=== PATIENT | female | born 1940 | race Two or more races ===

== ENCOUNTER 2023-11-09 10:28 | Inpatient (IN) | payer OTHER ==
[~2023-11-09] VITALS: Ht 152.4 cm; Wt 113.4 kg
[~2023-11-09 10:28] MED LIST: ACID REDUCER20 M1; GRALISE600 MG; SYNTHROID137 MCG
[2023-11-09 11:12] LABS: URINE APPEARANCE Turbid; URINE BILIRRUBIN Small (NEGATIVE); URINE BLOOD Trace; URINE COLOR Dark Yellow; URINE GLUCOSE Negative (NEGATIVE); URINE LEUKOCYTE Large; URINE NITRATE Negative; URINE PROTEIN 30 (NEGATIVE)
[2023-11-09 11:14] LABS: HEMATOCRIT 43.9 % (36.0-45.00); HEMOGLOBIN 14.6 g/dL (12.0-15.00); MEAN CORPUSCULAR HGB CONC 33.3 g/dl (32.0-36.0); PLATELET COUNT 256 K/uL (150-450); RED BLOOD COUNT 5.22 M/uL (4.00-6.00); RED CELL DISTRIBUTION WIDTH 14.9 % (11.5-14.5)
[2023-11-09 11:15] LABS: URINE BACTERIA 506.4 uL (0.0-1933); URINE EPITHELIAL CELLS 71.4 uL (0.0-38.8); URINE RBC 165.9 uL (0.0-20.8); URINE WBC 2974.4 uL (0.0-23.2)
[2023-11-09 11:38] LABS: INR 1.09; PARTIAL THROMBOPLASTIN TIME 27.6 SECONDS (22.0-34.0); PROTHROMBIN TIME 11.4 SECONDS (9.0-11.5)
[2023-11-09 12:08] LABS: CALCIUM 9.4 mg/dL (8.5-10.1); CREATININE SERUM 1.09 mg/dL (0.55-1.02); GFR 47.71; POTASSIUM 3.92 mEq/L (3.5-5.1)
[2023-11-09 13:54] LABS: ABG PH 7.443 (7.35-7.45); ABG PO2 94.5 mmHg (80-100); ABG pCO2 37.4 mmHg (35-45); BASE EXCESS 1.2 mmol/l; SaO2 97.7 %
[2023-11-09 13:55] LABS: Tco2 26.2 mmol/l; allen test SATISFACTORY; o2 32 %; puncture site RADIAL RIGHT
[2023-11-12 02:25] LABS: CHOL HDL RATIO 3.6 (0-5.0)
[2023-11-12 02:26] LABS: TSH 4.3 uIU/mL (0.358-3.74)
[2023-11-12 06:44] LABS: HEMOGLOBIN 14.9 g/dL (12.0-15.00); MEAN CELL VOLUME 83.4 fL (80.00-100.00); MEAN CORPUSCULAR HEMOGLOBIN 27.6 pg (27.00-32.0); MEAN CORPUSCULAR HGB CONC 33.1 g/dl (32.0-36.0); PLATELET COUNT 272 K/uL (150-450); RED CELL DISTRIBUTION WIDTH 14.3 % (11.5-14.5)
[2023-11-12 07:04] LABS: ALBUMIN 2.9 gm/dL (3.4-5.0); BILIRUBIN TOTAL 1.34 mg/dL (0.3-1.2); CALCIUM 9.1 mg/dL (8.5-10.1); CREATININE SERUM 0.84 mg/dL (0.55-1.02); GFR 64.44; GLOBULINA 4.6 G/DL (2.4-3.5); POTASSIUM 3.55 mEq/L (3.5-5.1); TOTAL PROTEIN 7.5 gm/dL (6.4-8.2)
[2023-11-13 06:57] LABS: ALBUMIN 2.7 gm/dL (3.4-5.0); BILIRUBIN TOTAL 1.03 mg/dL (0.3-1.2); CREATININE SERUM 0.86 mg/dL (0.55-1.02); GFR 62.71; GLOBULINA 4.5 G/DL (2.4-3.5); POTASSIUM 3.47 mEq/L (3.5-5.1); TOTAL PROTEIN 7.2 gm/dL (6.4-8.2)
[2023-11-13 07:04] LABS: HEMATOCRIT 44.6 % (36.0-45.00); HEMOGLOBIN 14.5 g/dL (12.0-15.00); MEAN CELL VOLUME 82.7 fL (80.00-100.00); MEAN CORPUSCULAR HGB CONC 32.6 g/dl (32.0-36.0); PLATELET COUNT 296 K/uL (150-450); RED BLOOD COUNT 5.39 M/uL (4.00-6.00); RED CELL DISTRIBUTION WIDTH 14.6 % (11.5-14.5)
[2023-11-14 08:09] LABS: HEMATOCRIT 46.5 % (36.0-45.00); HEMOGLOBIN 15.3 g/dL (12.0-15.00); MEAN CELL VOLUME 84.5 fL (80.00-100.00); MEAN CORPUSCULAR HEMOGLOBIN 27.8 pg (27.00-32.0); MEAN CORPUSCULAR HGB CONC 32.9 g/dl (32.0-36.0); PLATELET COUNT 316 K/uL (150-450); RED CELL DISTRIBUTION WIDTH 14.5 % (11.5-14.5)
[2023-11-14 08:38] LABS: BILIRUBIN TOTAL 0.96 mg/dL (0.3-1.2); CREATININE SERUM 0.83 mg/dL (0.55-1.02); GFR 65.34; GLOBULINA 4.1 G/DL (2.4-3.5); POTASSIUM 3.69 mEq/L (3.5-5.1); TOTAL PROTEIN 7.1 gm/dL (6.4-8.2)
[2023-11-20 06:48] LABS: HEMATOCRIT 42.6 % (36.0-45.00); MEAN CELL VOLUME 83.5 fL (80.00-100.00); MEAN CORPUSCULAR HEMOGLOBIN 27.5 pg (27.00-32.0); PLATELET COUNT 288 K/uL (150-450); RED CELL DISTRIBUTION WIDTH 14.2 % (11.5-14.5)
[2023-11-20 07:20] LABS: ALBUMIN 2.3 gm/dL (3.4-5.0); BILIRUBIN TOTAL 0.74 mg/dL (0.3-1.2); CALCIUM 8.8 mg/dL (8.5-10.1); CREATININE SERUM 0.72 mg/dL (0.55-1.02); GFR 76.98; GLOBULINA 3.6 G/DL (2.4-3.5); POTASSIUM 3.96 mEq/L (3.5-5.1); TOTAL PROTEIN 5.9 gm/dL (6.4-8.2)
[2023-11-22 09:10] LABS: INR 1.09; PARTIAL THROMBOPLASTIN TIME 26.5 SECONDS (22.0-34.0); PROTHROMBIN TIME 11.4 SECONDS (9.0-11.5)
[2023-11-24 08:12] LABS: CALCIUM 8.7 mg/dL (8.5-10.1); CREATININE SERUM 0.74 mg/dL (0.55-1.02); GFR 74.59; POTASSIUM 3.8 mEq/L (3.5-5.1)
[2023-11-24 08:22] LABS: HEMATOCRIT 40.3 % (36.0-45.00); HEMOGLOBIN 13.5 g/dL (12.0-15.00); MEAN CELL VOLUME 83.5 fL (80.00-100.00); MEAN CORPUSCULAR HEMOGLOBIN 27.9 pg (27.00-32.0); MEAN CORPUSCULAR HGB CONC 33.4 g/dl (32.0-36.0); PLATELET COUNT 253 K/uL (150-450); RED BLOOD COUNT 4.83 M/uL (4.00-6.00); RED CELL DISTRIBUTION WIDTH 14.2 % (11.5-14.5)
[2023-11-27 06:52] LABS: HEMATOCRIT 39.3 % (36.0-45.00); HEMOGLOBIN 13.1 g/dL (12.0-15.00); MEAN CELL VOLUME 83.2 fL (80.00-100.00); MEAN CORPUSCULAR HEMOGLOBIN 27.6 pg (27.00-32.0); MEAN CORPUSCULAR HGB CONC 33.2 g/dl (32.0-36.0); PLATELET COUNT 253 K/uL (150-450); RED BLOOD COUNT 4.72 M/uL (4.00-6.00); RED CELL DISTRIBUTION WIDTH 14.3 % (11.5-14.5)
[2023-11-27 12:08] LABS: ALBUMIN 2.3 gm/dL (3.4-5.0); BILIRUBIN TOTAL 1.05 mg/dL (0.3-1.2); CALCIUM 8.8 mg/dL (8.5-10.1); CREATININE SERUM 0.68 mg/dL (0.55-1.02); GFR 82.23; GLOBULINA 3.8 G/DL (2.4-3.5); PHOSPHOROUS 4.2 mg/dL (2.5-4.9); POTASSIUM 4.24 mEq/L (3.5-5.1); TOTAL PROTEIN 6.1 gm/dL (6.4-8.2)
[2023-11-27 12:15] LABS: MAGNESIUM 1.4 mg/dL (1.8-2.4)
[2023-11-28 22:33] LABS: PH,URINE 7.5 (5.0-8.0); URINE APPEARANCE Cloudy; URINE BILIRRUBIN Negative (NEGATIVE); URINE BLOOD Large; URINE COLOR Yellow; URINE GLUCOSE Negative (NEGATIVE); URINE LEUKOCYTE Large; URINE NITRATE Negative; URINE PROTEIN 30 (NEGATIVE)
[2023-11-28 22:37] LABS: URINE BACTERIA 2964.6 uL (0.0-1933); URINE EPITHELIAL CELLS 17.7 uL (0.0-38.8); URINE RBC 357.8 uL (0.0-20.8); URINE WBC 317.5 uL (0.0-23.2)
[2023-11-28 22:49] LABS: URINE MUCUS SCANT
[2023-11-28 22:50] LABS: URINE CRYSTALS FEW /HPF; URINE YEAST FEW /hpf
[2023-11-29 15:10] LABS: HEMOGLOBIN 13.1 g/dL (12.0-15.00); MEAN CORPUSCULAR HEMOGLOBIN 27.2 pg (27.00-32.0); MEAN CORPUSCULAR HGB CONC 32.8 g/dl (32.0-36.0); PLATELET COUNT 255 K/uL (150-450); RED BLOOD COUNT 4.82 M/uL (4.00-6.00); RED CELL DISTRIBUTION WIDTH 14.4 % (11.5-14.5)
[2023-11-29 15:11] LABS: PH,URINE 7.5 (5.0-8.0); URINE APPEARANCE Clear; URINE BILIRRUBIN Negative (NEGATIVE); URINE BLOOD Moderate; URINE COLOR Yellow; URINE GLUCOSE Negative (NEGATIVE); URINE LEUKOCYTE Large; URINE NITRATE Positive; URINE PROTEIN Negative (NEGATIVE)
[2023-11-29 15:12] LABS: URINE BACTERIA 4968.7 uL (0.0-1933); URINE EPITHELIAL CELLS 13.4 uL (0.0-38.8); URINE RBC 39.5 uL (0.0-20.8); URINE WBC 157.4 uL (0.0-23.2)
[2023-11-29 15:28] LABS: ALBUMIN 2.3 gm/dL (3.4-5.0); BILIRUBIN TOTAL 0.88 mg/dL (0.3-1.2); CALCIUM 8.9 mg/dL (8.5-10.1); CREATININE SERUM 0.77 mg/dL (0.55-1.02); GFR 71.24; GLOBULINA 3.6 G/DL (2.4-3.5); POTASSIUM 4.18 mEq/L (3.5-5.1); TOTAL PROTEIN 5.9 gm/dL (6.4-8.2)
[2023-12-02 06:17] LABS: ALBUMIN 2.2 gm/dL (3.4-5.0); BILIRUBIN TOTAL 0.85 mg/dL (0.3-1.2); CALCIUM 8.6 mg/dL (8.5-10.1); CREATININE SERUM 0.6 mg/dL (0.55-1.02); GFR 95.01; GLOBULINA 3.8 G/DL (2.4-3.5); POTASSIUM 4.02 mEq/L (3.5-5.1)
[2023-12-02 06:24] LABS: HEMATOCRIT 37.8 % (36.0-45.00); HEMOGLOBIN 12.6 g/dL (12.0-15.00); MEAN CELL VOLUME 82.1 fL (80.00-100.00); MEAN CORPUSCULAR HEMOGLOBIN 27.4 pg (27.00-32.0); MEAN CORPUSCULAR HGB CONC 33.4 g/dl (32.0-36.0); PLATELET COUNT 256 K/uL (150-450)
[2023-12-06 06:15] LABS: HEMATOCRIT 38.1 % (36.0-45.00); HEMOGLOBIN 12.6 g/dL (12.0-15.00); MEAN CELL VOLUME 84.2 fL (80.00-100.00); MEAN CORPUSCULAR HEMOGLOBIN 27.9 pg (27.00-32.0); MEAN CORPUSCULAR HGB CONC 33.1 g/dl (32.0-36.0); PLATELET COUNT 265 K/uL (150-450); RED BLOOD COUNT 4.52 M/uL (4.00-6.00); RED CELL DISTRIBUTION WIDTH 14.9 % (11.5-14.5)
[2023-12-06 07:02] LABS: ALBUMIN 2.4 gm/dL (3.4-5.0); BILIRUBIN TOTAL 0.77 mg/dL (0.3-1.2); CALCIUM 9.1 mg/dL (8.5-10.1); CREATININE SERUM 0.85 mg/dL (0.55-1.02); GFR 63.56; GLOBULINA 3.8 G/DL (2.4-3.5); POTASSIUM 4.17 mEq/L (3.5-5.1); TOTAL PROTEIN 6.2 gm/dL (6.4-8.2)
[2023-12-06] MEDS ORDERED: LIPITOR40 M1 PO ×2 (10:48)
[2023-12-06] MEDS ORDERED: CLOPIDOGREL BIS75 MG PO ×2 (10:48)
[2023-12-06] MEDS ORDERED: XARELTO20 MG PO ×2 (10:48)
[2023-12-06] MEDS ORDERED: AMLODIPINE BESYL5 MG PO ×2 (10:48)
[2023-12-06] MEDS ORDERED: COZAAR50 MG PO ×2 (10:49)
[2023-12-06] MEDS ORDERED: METOPROLOL TART50 MG PO ×2 (10:49)
[2023-12-06] MEDS ORDERED: SPIRONOLACTONE25 MG PO ×2 (10:49)
[2023-12-06] MEDS ORDERED: ACID REDUCER20 M1 PO ×2 (10:50)
[2023-12-06] MEDS ORDERED: GRALISE600 MG PO ×2 (10:50)
[2023-12-06] MEDS ORDERED: LEVO-T137 MCG PO ×2 (10:51)
== END 2023-12-06 15:07 | DRG 64 ==
LOC: ER 10:28 → ICU-2 19:28 → ICU 11-13 18:50 → MEDI 11-16 12:11
PROVIDERS: General Practice; Internal Medicine; Internal Medicine Infectious Disease; ADMIT Internal Medicine; ATTEND Internal Medicine
PROC: B020ZZZ Computerized Tomography (CT Scan) of Brain (ICD-10-PCS; 2023-11-09)
PROC: B345ZZZ Ultrasonography of Bilateral Common Carotid Arteries (ICD-10-PCS; 2023-11-09)
PROC: B030ZZZ Magnetic Resonance Imaging (MRI) of Brain (ICD-10-PCS; 2023-11-09)
PROC: B24BYZZ Ultrasonography of Heart with Aorta using Other Contrast (ICD-10-PCS; 2023-11-10)
PROC: B020ZZZ Computerized Tomography (CT Scan) of Brain (ICD-10-PCS; 2023-11-13)
PROC: 4A12X4Z Monitoring of Cardiac Electrical Activity, External Approach (ICD-10-PCS; 2023-11-16)
PROC: 0D9670Z Drainage of Stomach with Drainage Device, Via Natural or Artificial Opening (ICD-10-PCS; principal; 2023-11-21)
PROC: 3E0G76Z Introduction of Nutritional Substance into Upper GI, Via Natural or Artificial Opening (ICD-10-PCS; 2023-11-21)
DX: I63.9 Cerebral infarction, unspecified (principal); I21.4 Non-ST elevation (NSTEMI) myocardial infarction; I48.20 Chronic atrial fibrillation, unspecified; I50.20 Unspecified systolic (congestive) heart failure; N39.0 Urinary tract infection, site not specified; G81.91 Hemiplegia, unspecified affecting right dominant side; N17.9 Acute kidney failure, unspecified; I11.0 Hypertensive heart disease with heart failure; R13.0 Aphagia; E11.9 Type 2 diabetes mellitus without complications; Z79.4 Long term (current) use of insulin; I63.522 Cerebral infarction due to unspecified occlusion or stenosis of left anterior cerebral artery; I69.320 Aphasia following cerebral infarction; I34.0 Nonrheumatic mitral (valve) insufficiency; E66.01 Morbid (severe) obesity due to excess calories
CPT/HCPCS: 70544

== ENCOUNTER 2023-12-08 20:08 | Emergency (ER) | payer OTHER ==
[~2023-12-08] VITALS: Ht 170.2 cm; Wt 88.5 kg
[~2023-12-08 20:08] MED LIST changes: +ACID REDUCER20 M1 PO; +AMLODIPINE BESYL5 MG PO; +CLOPIDOGREL BIS75 MG PO; +COZAAR50 MG PO; +GRALISE600 MG PO; +LEVO-T137 MCG PO; +LIPITOR40 M1 PO; +METOPROLOL TART50 MG PO; +SPIRONOLACTONE25 MG PO; +XARELTO20 MG PO
[2023-12-08 21:45] LABS: HEMATOCRIT 37.6 % (36.0-45.00); HEMOGLOBIN 12.4 g/dL (12.0-15.00); MEAN CELL VOLUME 82.9 fL (80.00-100.00); MEAN CORPUSCULAR HEMOGLOBIN 27.2 pg (27.00-32.0); MEAN CORPUSCULAR HGB CONC 32.8 g/dl (32.0-36.0); PLATELET COUNT 365 K/uL (150-450); RED BLOOD COUNT 4.53 M/uL (4.00-6.00); RED CELL DISTRIBUTION WIDTH 15.8 % (11.5-14.5)
[2023-12-08 22:08] LABS: INR 1.09; PARTIAL THROMBOPLASTIN TIME 27.9 SECONDS (22.0-34.0); PROTHROMBIN TIME 11.4 SECONDS (9.0-11.5)
[2023-12-08 22:13] LABS: ALBUMIN 2.4 gm/dL (3.4-5.0); BILIRUBIN TOTAL 0.65 mg/dL (0.3-1.2); CALCIUM 8.9 mg/dL (8.5-10.1); CREATININE SERUM 0.75 mg/dL (0.55-1.02); GFR 73.44; GLOBULINA 3.6 G/DL (2.4-3.5); POTASSIUM 4.18 mEq/L (3.5-5.1)
== END 2023-12-09 11:12 | disposition home or self-care (01) ==
LOC: ER 20:08
PROVIDERS: Emergency Medicine
DX: R07.9 Chest pain, unspecified (principal); I48.91 Unspecified atrial fibrillation; Z91.013 Allergy to seafood; Z88.8 Allergy status to other drugs, medicaments and biological substances; Z86.73 Personal history of transient ischemic attack (TIA), and cerebral infarction without residual deficits; I25.2 Old myocardial infarction; E03.9 Hypothyroidism, unspecified; I10 Essential (primary) hypertension; Z91.041 Radiographic dye allergy status
CPT/HCPCS: 71045; 93005; 96365; 99284; J1940

== ENCOUNTER 2024-07-18 11:10 | Inpatient (IN) | payer OTHER ==
[~2024-07-18] VITALS: Ht 152.4 cm; Wt 136.1 kg
[2024-07-18 12:02] LABS: ABG PH 7.434 (7.35-7.45); ABG PO2 72.4 mmHg (80-100); ABG pCO2 27.6 mmHg (35-45); BASE EXCESS -4.6 mmol/l; BICARBONATE 18.1 mmol/l (23-25); SaO2 94.7 %; Tco2 18.9 mmol/l
[2024-07-18] MEDS ORDERED: ALBUTEROL SULFATE 3 ML/2.5 MG AMPUL.NEB IH ONE ×2 (12:09→12:15)
[2024-07-18 12:45] LABS: allen test SATISFACTORY; o2 28 %; puncture site RADIAL RIGHT
[2024-07-18 12:53] LABS: HEMATOCRIT 38.3 % (36.0-45.00); HEMOGLOBIN 12.7 g/dL (12.0-15.00); MEAN CELL VOLUME 84.9 fL (80.00-100.00); MEAN CORPUSCULAR HEMOGLOBIN 28.2 pg (27.00-32.0); MEAN CORPUSCULAR HGB CONC 33.2 g/dl (32.0-36.0); PLATELET COUNT 435 K/uL (150-450); RED BLOOD COUNT 4.51 M/uL (4.00-6.00); RED CELL DISTRIBUTION WIDTH 15.1 % (11.5-14.5)
[2024-07-18 13:09] LABS: URINE APPEARANCE Turbid; URINE BILIRRUBIN Moderate (NEGATIVE); URINE BLOOD Negative; URINE COLOR Orange; URINE GLUCOSE Negative (NEGATIVE); URINE KETONE Trace (NEGATIVE); URINE LEUKOCYTE Small; URINE NITRATE Positive
[2024-07-18 13:13] LABS: URINE BACTERIA 3156.2 uL (0.0-1933); URINE RBC 181.5 uL (0.0-20.8); URINE WBC 47.9 uL (0.0-23.2)
[2024-07-18 13:23] LABS: URINE CAST > 21.83 uL (0.0-1.40); URINE EPITHELIAL CELLS > 201.7 uL (0.0-38.8); URINE PROTEIN 100 (NEGATIVE)
[2024-07-18 13:27] LABS: URINE CRYSTALS MANY /HPF
[2024-07-18 13:27] LABS: ALBUMIN 3.1 gm/dL (3.4-5.0); BILIRUBIN TOTAL 1.42 mg/dL (0.3-1.2); CREATININE SERUM 1.42 mg/dL (0.55-1.02); GFR 35.16; GLOBULINA 4.3 G/DL (2.4-3.5); POTASSIUM 5.09 mEq/L (3.5-5.1); TOTAL PROTEIN 7.4 gm/dL (6.4-8.2)
[2024-07-18 13:34] LABS: INR 1.04; PROTHROMBIN TIME 11.3 SECONDS (9.0-11.5)
[2024-07-18] MEDS ORDERED: NITROGLYCERIN IN 5 % DEXTROSE 50 MG/250 ML BOTTLE IV ONE (14:14)
[2024-07-18] MEDS ORDERED: NITROGLYCERIN IN 5 % DEXTROSE 250 ML IV SCH (14:30)
[2024-07-18 19:50] VITALS: BP 98/60
[2024-07-18] MEDS ORDERED: CEFTRIAXONE SODIUM 2,000 MG in 0.9 % SODIUM CHLORIDE 100 ML IV SCH (20:18)
[2024-07-18] MEDS ORDERED: ONDANSETRON HCL 4 MG in 0.9 % SODIUM CHLORIDE 50 ML IV PRN (20:30)
[2024-07-18] MEDS ORDERED: ACETAMINOPHEN 500 MG GEL..CAP PO PRN (20:30)
[2024-07-18] MEDS ORDERED: CEFTRIAXONE SODIUM 2,000 MG VIAL ONE (20:41)
[2024-07-18 21:14] VITALS: BP 99/61; O2SAT 95
[2024-07-18] MEDS ORDERED: KETOROLAC TROMETHAMINE 30 MG VIAL ONE (21:27)
[2024-07-18 22:07] VITALS: BP 100/64; O2SAT 95
[2024-07-18 23:05] VITALS: BP 96/72; O2SAT 96
[2024-07-18] MEDS ORDERED: IPRATROPIUM BROMIDE 0.5 MG/2.5 ML AMPUL.NEB IH ONE (23:55)
[2024-07-19] VITALS (18 sets, daily range): BP systolic 82–136; BP diastolic 62–107; O2SAT 94–100
[2024-07-19] MEDS ORDERED: FUROsemide 40 MG/4 ML VIAL ONE (00:54)
[2024-07-19] MEDS ORDERED: FUROsemide 40 MG/4 ML VIAL IV SCH ×2 (01:00→21:00)
[2024-07-19] MEDS ORDERED: IPRATROPIUM BROMIDE 0.5 MG/2.5 ML AMPUL.NEB IH SCH (01:00)
[2024-07-19] MEDS ORDERED: METOPROLOL SUCCINATE 25 MG TAB.SR.24H PO ONE (05:45)
[2024-07-19] MEDS ORDERED: LEVOTHYROXINE SODIUM 137 MCG TABLET PO SCH (06:00)
[2024-07-19] MEDS ORDERED: METOPROLOL TARTRATE 25 MG TABLET PO SCH (06:44)
[2024-07-19 07:42] LABS: HEMATOCRIT 37.6 % (36.0-45.00); HEMOGLOBIN 12.3 g/dL (12.0-15.00); MEAN CELL VOLUME 86.8 fL (80.00-100.00); MEAN CORPUSCULAR HEMOGLOBIN 28.4 pg (27.00-32.0); MEAN CORPUSCULAR HGB CONC 32.8 g/dl (32.0-36.0); PLATELET COUNT 424 K/uL (150-450); RED BLOOD COUNT 4.33 M/uL (4.00-6.00); RED CELL DISTRIBUTION WIDTH 15.1 % (11.5-14.5)
[2024-07-19 08:40] LABS: ALBUMIN 2.8 gm/dL (3.4-5.0); BILIRUBIN TOTAL 1.24 mg/dL (0.3-1.2); CALCIUM 9.1 mg/dL (8.5-10.1); CREATININE SERUM 1.42 mg/dL (0.55-1.02); GFR 35.16; GLOBULINA 3.9 G/DL (2.4-3.5); MAGNESIUM 1.9 mg/dL (1.8-2.4); PHOSPHOROUS 4.4 mg/dL (2.5-4.9); POTASSIUM 5.09 mEq/L (3.5-5.1); TOTAL PROTEIN 6.7 gm/dL (6.4-8.2)
[2024-07-19] MEDS ORDERED: RIVAROXABAN 20 MG TABLET PO SCH (09:00)
[2024-07-19] MEDS ORDERED: ATORVASTATIN CALCIUM 40 MG TABLET PO SCH (09:00)
[2024-07-19] MEDS ORDERED: FAMOTIDINE/PF 20 MG in 0.9 % SODIUM CHLORIDE 8 ML IV PUSH SCH (09:00)
[2024-07-19] MEDS ORDERED: NITROGLYCERIN IN 5 % DEXTROSE 250 ML IV SCH (10:45)
[2024-07-19 14:15] LABS: TSH 44.6 uIU/mL (0.358-3.74)
[2024-07-19] MEDS ORDERED: LEVOTHYROXINE SODIUM 137 MCG TABLET PO STA (15:56)
[2024-07-19] MEDS ORDERED: TICAGRELOR 90 MG TABLET PO SCH (17:00)
[2024-07-20 04:06] VITALS: BP 130/98; O2SAT 98
[2024-07-20] MEDS ORDERED: LEVOTHYROXINE SODIUM 137 MCG TABLET PO SCH (06:00)
[2024-07-20 06:20] LABS: ABG PO2 77.7 mmHg (80-100); ABG pCO2 33.8 mmHg (35-45); BASE EXCESS -2.8 mmol/l; BICARBONATE 20.9 mmol/l (23-25); SaO2 95.4 %; allen test SATISFACTORY; o2 32 %; puncture site RADIAL LEFT
[2024-07-20 06:32] LABS: HEMATOCRIT 34.2 % (36.0-45.00); HEMOGLOBIN 11.5 g/dL (12.0-15.00); MEAN CELL VOLUME 84.5 fL (80.00-100.00); MEAN CORPUSCULAR HEMOGLOBIN 28.4 pg (27.00-32.0); MEAN CORPUSCULAR HGB CONC 33.7 g/dl (32.0-36.0); PLATELET COUNT 430 K/uL (150-450); RED BLOOD COUNT 4.04 M/uL (4.00-6.00); RED CELL DISTRIBUTION WIDTH 15.4 % (11.5-14.5)
[2024-07-20 07:00] VITALS: BP 127/77; O2SAT 96
[2024-07-20 07:26] LABS: ALBUMIN 2.5 gm/dL (3.4-5.0); BILIRUBIN TOTAL 0.97 mg/dL (0.3-1.2); CALCIUM 8.5 mg/dL (8.5-10.1); CREATININE SERUM 1.41 mg/dL (0.55-1.02); GFR 35.45; GLOBULINA 3.9 G/DL (2.4-3.5); MAGNESIUM 1.8 mg/dL (1.8-2.4); PHOSPHOROUS 4.2 mg/dL (2.5-4.9); POTASSIUM 4.76 mEq/L (3.5-5.1); TOTAL PROTEIN 6.4 gm/dL (6.4-8.2)
[2024-07-20 07:29] LABS: C-REACTIVE PROTEIN 26.2 MG/DL (0.00-0.29)
[2024-07-20] MEDS ORDERED: PANTOPRAZOLE SODIUM 40 MG/VIAL VIAL IV SCH (09:00)
[2024-07-20] MEDS ORDERED: SPIRONOLACTONE 25 MG TABLET PO SCH (09:00)
[2024-07-20] MEDS ORDERED: METOPROLOL TARTRATE 25 MG TABLET PO STA (09:09)
[2024-07-20 12:00] VITALS: BP 113/72; O2SAT 95
[2024-07-20 15:37] VITALS: BP 104/83; O2SAT 93
[2024-07-20] MEDS ORDERED: ATORVASTATIN CALCIUM 40 MG TABLET PO SCH (17:00)
[2024-07-20] MEDS ORDERED: METOPROLOL TARTRATE 50 MG TABLET PO SCH (17:00)
[2024-07-20 20:00] VITALS: BP 110/63; O2SAT 95
[2024-07-20] MEDS ORDERED: FUROsemide 20 MG/2 ML VIAL IV SCH (21:00)
[2024-07-20 23:31] VITALS: BP 122/82; O2SAT 94
[2024-07-21 04:00] VITALS: BP 113/72; O2SAT 95
[2024-07-21 06:45] LABS: HEMATOCRIT 36.3 % (36.0-45.00); HEMOGLOBIN 12.1 g/dL (12.0-15.00); MEAN CELL VOLUME 86.3 fL (80.00-100.00); MEAN CORPUSCULAR HEMOGLOBIN 28.8 pg (27.00-32.0); MEAN CORPUSCULAR HGB CONC 33.3 g/dl (32.0-36.0); PLATELET COUNT 466 K/uL (150-450)
[2024-07-21 07:16] VITALS: BP 123/70; O2SAT 97
[2024-07-21 07:17] LABS: ALBUMIN 2.6 gm/dL (3.4-5.0); BILIRUBIN TOTAL 1.04 mg/dL (0.3-1.2); CALCIUM 8.6 mg/dL (8.5-10.1); CREATININE SERUM 1.58 mg/dL (0.55-1.02); GFR 31.08; MAGNESIUM 1.7 mg/dL (1.8-2.4); PHOSPHOROUS 4.1 mg/dL (2.5-4.9); POTASSIUM 4.39 mEq/L (3.5-5.1); TOTAL PROTEIN 6.6 gm/dL (6.4-8.2)
[2024-07-21] MEDS ORDERED: RIVAROXABAN 15 MG TABLET PO SCH (09:00)
[2024-07-21] MEDS ORDERED: CLOPIDOGREL BISULFATE 75 MG TABLET PO SCH (09:00)
[2024-07-21] MEDS ORDERED: MAGNESIUM SULFATE IN WATER 50 ML IV NR (10:30)
[2024-07-21 11:59] VITALS: BP 87/61; O2SAT 96
[2024-07-21 14:24] LABS: PH,URINE 5.5 (5.0-8.0); URINE APPEARANCE Cloudy; URINE BILIRRUBIN Negative (NEGATIVE); URINE BLOOD Small; URINE COLOR Yellow; URINE GLUCOSE Negative (NEGATIVE); URINE KETONE Negative (NEGATIVE); URINE LEUKOCYTE Small; URINE NITRATE Negative; URINE PROTEIN Negative (NEGATIVE)
[2024-07-21 14:28] LABS: URINE BACTERIA 90.7 uL (0.0-1933); URINE CAST 13.89 uL (0.0-1.40); URINE EPITHELIAL CELLS 27.5 uL (0.0-38.8); URINE RBC 44.4 uL (0.0-20.8); URINE WBC 48.2 uL (0.0-23.2)
[2024-07-21 14:44] LABS: URINE CRYSTALS FEW /HPF
[2024-07-21 14:45] LABS: URINE MUCUS SCANT
[2024-07-21 16:29] VITALS: BP 97/72; O2SAT 100
[2024-07-21 19:07] LABS: PLEURAL FLUID COLOR YELLOW
[2024-07-21 19:08] LABS: PLEURAL FLUID APPEARANCE CLOUDY
[2024-07-21 19:23] LABS: TP PLEURAL FLUID 4.1 g/dl
[2024-07-21 20:00] VITALS: BP 114/67; O2SAT 96
[2024-07-21 20:11] LABS: MONONUCLEAR 57 %; POLYMORPHONUCLEAR 43 %
[2024-07-21 23:42] VITALS: BP 104/84; O2SAT 93
[2024-07-22] VITALS (8 sets, daily range): BP systolic 81–150; BP diastolic 59–86; O2SAT 93–99
[2024-07-22 07:01] LABS: HEMATOCRIT 35.8 % (36.0-45.00); HEMOGLOBIN 11.9 g/dL (12.0-15.00); MEAN CELL VOLUME 85.1 fL (80.00-100.00); MEAN CORPUSCULAR HEMOGLOBIN 28.2 pg (27.00-32.0); MEAN CORPUSCULAR HGB CONC 33.2 g/dl (32.0-36.0); PLATELET COUNT 470 K/uL (150-450); RED CELL DISTRIBUTION WIDTH 15.4 % (11.5-14.5)
[2024-07-22 07:07] LABS: ALBUMIN 2.5 gm/dL (3.4-5.0); CALCIUM 8.8 mg/dL (8.5-10.1); CREATININE SERUM 1.39 mg/dL (0.55-1.02); GFR 36.03; POTASSIUM 4.79 mEq/L (3.5-5.1); TOTAL PROTEIN 6.5 gm/dL (6.4-8.2)
[2024-07-22] MEDS ORDERED: FUROsemide 20 MG/2 ML VIAL IV SCH (09:00)
[2024-07-22] MEDS ORDERED: LEVOTHYROXINE SODIUM 100 MCG/VIAL VIAL IV SCH (09:00)
[2024-07-22] MEDS ORDERED: 0.9 % SODIUM CHLORIDE 1,000 ML IV STA (09:36)
[2024-07-22] MEDS ORDERED: METRONIDAZOLE/SODIUM CHLORIDE 100 ML IV SCH (17:00)
[2024-07-22] MEDS ORDERED: METOPROLOL TARTRATE 25 MG TABLET PO SCH (17:00)
[2024-07-22] MEDS ORDERED: METOPROLOL SUCCINATE 50 MG TAB.SR.24H PO SCH (21:00)
[2024-07-23] VITALS (9 sets, daily range): BP systolic 112–128; BP diastolic 71–75; O2SAT 91–98
[2024-07-23 06:06] LABS: ABG PH 7.432 (7.35-7.45); ABG PO2 65.9 mmHg (80-100); ABG pCO2 31.9 mmHg (35-45); BASE EXCESS -2.4 mmol/l; BICARBONATE 20.8 mmol/l (23-25); SaO2 93.2 %; Tco2 21.8 mmol/l
[2024-07-23 06:22] LABS: allen test SATISFACTORY; o2 32 %; puncture site RADIAL RIGHT
[2024-07-23 06:47] LABS: HEMATOCRIT 34.4 % (36.0-45.00); HEMOGLOBIN 11.6 g/dL (12.0-15.00); MEAN CELL VOLUME 84.4 fL (80.00-100.00); MEAN CORPUSCULAR HEMOGLOBIN 28.6 pg (27.00-32.0); MEAN CORPUSCULAR HGB CONC 33.9 g/dl (32.0-36.0); PLATELET COUNT 443 K/uL (150-450); RED BLOOD COUNT 4.07 M/uL (4.00-6.00); RED CELL DISTRIBUTION WIDTH 14.9 % (11.5-14.5)
[2024-07-23 06:48] LABS: ALBUMIN 2.4 gm/dL (3.4-5.0); BILIRUBIN TOTAL 0.9 mg/dL (0.3-1.2); CALCIUM 8.5 mg/dL (8.5-10.1); CREATININE SERUM 1.2 mg/dL (0.55-1.02); GFR 42.7; MAGNESIUM 2.1 mg/dL (1.8-2.4); PHOSPHOROUS 2.9 mg/dL (2.5-4.9); POTASSIUM 4.84 mEq/L (3.5-5.1); TOTAL PROTEIN 6.4 gm/dL (6.4-8.2)
[2024-07-23] MEDS ORDERED: PANTOPRAZOLE SODIUM 40 MG TABLET.DR PO SCH (09:00)
[2024-07-23] MEDS ORDERED: FUROsemide 20 MG TABLET PO SCH (09:00)
[2024-07-23] MEDS ORDERED: IRON/V.C/V.B12/FOLIC A/VIT. E 1 CAPL CAPLET PO SCH (17:00)
[2024-07-23] MEDS ORDERED: AMINO ACIDS/PROTEIN HYDROLYS 30 ML BLIST.PACK PO SCH (17:00)
[2024-07-24 02:25] VITALS: BP 129/79
[2024-07-24 05:25] VITALS: O2SAT 93
[2024-07-24 09:29] VITALS: O2SAT 95
[2024-07-24 09:42] VITALS: BP 112/72; O2SAT 96
[2024-07-24 12:56] VITALS: O2SAT 95
[2024-07-24 21:35] VITALS: O2SAT 94
[2024-07-25] VITALS (10 sets, daily range): BP systolic 98–150; BP diastolic 68–90; O2SAT 88–96
[2024-07-25 06:32] LABS: HEMATOCRIT 36.6 % (36.0-45.00); HEMOGLOBIN 12.3 g/dL (12.0-15.00); MEAN CELL VOLUME 85.5 fL (80.00-100.00); MEAN CORPUSCULAR HEMOGLOBIN 28.7 pg (27.00-32.0); MEAN CORPUSCULAR HGB CONC 33.5 g/dl (32.0-36.0); PLATELET COUNT 511 K/uL (150-450); RED BLOOD COUNT 4.28 M/uL (4.00-6.00); RED CELL DISTRIBUTION WIDTH 15.6 % (11.5-14.5)
[2024-07-25 07:43] LABS: ALBUMIN 2.5 gm/dL (3.4-5.0); BILIRUBIN TOTAL 0.66 mg/dL (0.3-1.2); CALCIUM 8.7 mg/dL (8.5-10.1); CREATININE SERUM 1.14 mg/dL (0.55-1.02); GFR 45.3; GLOBULINA 4.3 G/DL (2.4-3.5); PHOSPHOROUS 3.1 mg/dL (2.5-4.9); POTASSIUM 5.16 mEq/L (3.5-5.1); TOTAL PROTEIN 6.8 gm/dL (6.4-8.2)
[2024-07-25 11:24] LABS: ABG PH 7.369 (7.35-7.45); ABG pCO2 38.6 mmHg (35-45); BASE EXCESS -3.1 mmol/l; BICARBONATE 21.8 mmol/l (23-25); SaO2 87.6 %
[2024-07-25 11:48] LABS: ABG PO2 56.2 mmHg (80-100); o2 21 %
[2024-07-25 11:49] LABS: allen test SATISFACTORY; puncture site RADIAL LEFT
[2024-07-26] VITALS (8 sets, daily range): BP systolic 107–140; BP diastolic 74–84; O2SAT 88–100
[2024-07-26] MEDS ORDERED: LEVOTHYROXINE SODIUM 137 MCG TABLET PO SCH (06:00)
[2024-07-26] MEDS ORDERED: FUROsemide 20 MG/2 ML VIAL IV SCH (09:00)
[2024-07-26] MEDS ORDERED: ALBUMIN HUMAN-25 0.25GM/ML (50ML) VIAL IV SCH (10:43)
[2024-07-27] VITALS (9 sets, daily range): BP systolic 116–139; BP diastolic 72–86; O2SAT 92–100
[2024-07-27] MEDS ORDERED: FUROsemide 40 MG/4 ML VIAL IV STA (12:28)
[2024-07-27] MEDS ORDERED: FUROsemide 40 MG/4 ML VIAL ONE (12:35)
[2024-07-27 13:09] LABS: ABG PH 7.257 (7.35-7.45); ABG PO2 91.9 mmHg (80-100); ABG pCO2 57.8 mmHg (35-45); BICARBONATE 25.2 mmol/l (23-25); SaO2 95.3 %
[2024-07-27 13:35] LABS: allen test SATISFACTORY; o2 100 %; puncture site RADIAL RIGHT
[2024-07-27 14:47] LABS: HEMOGLOBIN 11.7 g/dL (12.0-15.00); MEAN CELL VOLUME 86.6 fL (80.00-100.00); MEAN CORPUSCULAR HEMOGLOBIN 28.2 pg (27.00-32.0); MEAN CORPUSCULAR HGB CONC 32.5 g/dl (32.0-36.0); PLATELET COUNT 528 K/uL (150-450); RED BLOOD COUNT 4.16 M/uL (4.00-6.00); RED CELL DISTRIBUTION WIDTH 16.1 % (11.5-14.5)
[2024-07-27 15:05] LABS: ABG PO2 138.9 mmHg (80-100); BASE EXCESS -5.8 mmol/l; BICARBONATE 24.5 mmol/l (23-25); Tco2 26.6 mmol/l
[2024-07-27 15:10] LABS: ALBUMIN 2.9 gm/dL (3.4-5.0); BILIRUBIN TOTAL 0.59 mg/dL (0.3-1.2); CALCIUM 9.1 mg/dL (8.5-10.1); CREATININE SERUM 1.2 mg/dL (0.55-1.02); GFR 42.7; GLOBULINA 4.2 G/DL (2.4-3.5); MAGNESIUM 2.1 mg/dL (1.8-2.4); PHOSPHOROUS 3.6 mg/dL (2.5-4.9); TOTAL PROTEIN 7.1 gm/dL (6.4-8.2)
[2024-07-27 15:18] LABS: ABG pCO2 70.3 mmHg (35-45); o2 100 %
[2024-07-27 15:19] LABS: allen test SATISFACTORY; puncture site RADIAL LEFT
[2024-07-27 17:36] LABS: ABG PH 7.329 (7.35-7.45); ABG PO2 143.9 mmHg (80-100); ABG pCO2 46.1 mmHg (35-45); BASE EXCESS -2.5 mmol/l; BICARBONATE 23.7 mmol/l (23-25); Tco2 25.1 mmol/l
[2024-07-27 17:45] LABS: allen test SATISFACTORY; o2 100 %; puncture site RADIAL LEFT
[2024-07-27] MEDS ORDERED: FUROsemide 20 MG/2 ML VIAL IV SCH (21:00)
[2024-07-28] VITALS (9 sets, daily range): BP systolic 111–122; BP diastolic 82–88; O2SAT 90–100
[2024-07-28] MEDS ORDERED: CEFTRIAXONE SODIUM 2,000 MG VIAL ONE (08:50)
[2024-07-28] MEDS ORDERED: ENALAPRIL MALEATE 2.5 MG TABLET PO SCH (09:00)
[2024-07-28 09:33] LABS: ABG PH 7.411 (7.35-7.45); ABG PO2 130.7 mmHg (80-100); BASE EXCESS -1.3 mmol/l; BICARBONATE 22.8 mmol/l (23-25); Tco2 23.9 mmol/l
[2024-07-28 09:59] LABS: ABG pCO2 36.8 mmHg (35-45); allen test SATISFACTORY; o2 100 %; puncture site RADIAL LEFT
[2024-07-29] VITALS (8 sets, daily range): BP systolic 103–126; BP diastolic 72–86; O2SAT 92–100
[2024-07-29 07:58] LABS: HEMATOCRIT 32.7 % (36.0-45.00); MEAN CORPUSCULAR HGB CONC 32.9 g/dl (32.0-36.0); PLATELET COUNT 459 K/uL (150-450); RED BLOOD COUNT 3.85 M/uL (4.00-6.00); RED CELL DISTRIBUTION WIDTH 15.5 % (11.5-14.5)
[2024-07-29 08:05] LABS: HEMOGLOBIN 10.7 g/dL (12.0-15.00); MEAN CORPUSCULAR HEMOGLOBIN 27.7 pg (27.00-32.0)
[2024-07-29 08:52] LABS: ALBUMIN 2.5 gm/dL (3.4-5.0); BILIRUBIN TOTAL 0.61 mg/dL (0.3-1.2); CALCIUM 8.9 mg/dL (8.5-10.1); CREATININE SERUM 1.6 mg/dL (0.55-1.02); GFR 30.63; GLOBULINA 3.8 G/DL (2.4-3.5); PHOSPHOROUS 3.3 mg/dL (2.5-4.9); POTASSIUM 5.54 mEq/L (3.5-5.1); TOTAL PROTEIN 6.3 gm/dL (6.4-8.2)
[2024-07-29] MEDS ORDERED: SODIUM POLYSTYRENE SULFONATE 30G/8 TSP PO SCH (13:00)
[2024-07-30] VITALS (9 sets, daily range): BP systolic 117–122; BP diastolic 76–89; O2SAT 90–100
[2024-07-30 06:21] LABS: HEMATOCRIT 33.4 % (36.0-45.00); MEAN CELL VOLUME 85.8 fL (80.00-100.00); MEAN CORPUSCULAR HEMOGLOBIN 28.2 pg (27.00-32.0); MEAN CORPUSCULAR HGB CONC 32.9 g/dl (32.0-36.0); PLATELET COUNT 472 K/uL (150-450); RED BLOOD COUNT 3.89 M/uL (4.00-6.00)
[2024-07-30 07:27] LABS: ALBUMIN 2.4 gm/dL (3.4-5.0); BILIRUBIN TOTAL 0.5 mg/dL (0.3-1.2); CALCIUM 8.7 mg/dL (8.5-10.1); CREATININE SERUM 1.35 mg/dL (0.55-1.02); GFR 37.27; GLOBULINA 3.9 G/DL (2.4-3.5); TOTAL PROTEIN 6.3 gm/dL (6.4-8.2)
[2024-07-30 07:28] LABS: POTASSIUM 5.64 mEq/L (3.5-5.1)
[2024-07-30] MEDS ORDERED: FUROsemide 20 MG TABLET PO NR (11:30)
[2024-07-30] MEDS ORDERED: SODIUM POLYSTYRENE SULFONATE 30G/8 TSP PO SCH (13:00)
[2024-07-31] VITALS (9 sets, daily range): BP systolic 91–126; BP diastolic 61–70; O2SAT 90–98
[2024-07-31 06:03] LABS: CALCIUM 8.4 mg/dL (8.5-10.1); CREATININE SERUM 1.11 mg/dL (0.55-1.02); GFR 46.72; POTASSIUM 4.92 mEq/L (3.5-5.1)
[2024-07-31] MEDS ORDERED: FUROsemide 20 MG TABLET PO SCH (09:00)
[2024-07-31] MEDS ORDERED: SODIUM POLYSTYRENE SULFONATE 30G/8 TSP PO SCH (09:00)
[2024-08-01] VITALS (9 sets, daily range): BP systolic 106–130; BP diastolic 73–89; O2SAT 91–100
[2024-08-01 08:11] LABS: HEMATOCRIT 33.6 % (36.0-45.00); HEMOGLOBIN 10.9 g/dL (12.0-15.00); MEAN CELL VOLUME 86.2 fL (80.00-100.00); MEAN CORPUSCULAR HGB CONC 32.5 g/dl (32.0-36.0); PLATELET COUNT 447 K/uL (150-450); RED BLOOD COUNT 3.89 M/uL (4.00-6.00); RED CELL DISTRIBUTION WIDTH 15.5 % (11.5-14.5)
[2024-08-01 08:24] LABS: ALBUMIN 2.3 gm/dL (3.4-5.0); BILIRUBIN TOTAL 0.53 mg/dL (0.3-1.2); CALCIUM 8.2 mg/dL (8.5-10.1); CREATININE SERUM 0.96 mg/dL (0.55-1.02); GFR 55.24; GLOBULINA 3.8 G/DL (2.4-3.5); MAGNESIUM 1.8 mg/dL (1.8-2.4); PHOSPHOROUS 3.2 mg/dL (2.5-4.9); POTASSIUM 4.55 mEq/L (3.5-5.1); TOTAL PROTEIN 6.1 gm/dL (6.4-8.2)
[2024-08-01 13:32] LABS: TSH 28.2 uIU/mL (0.358-3.74)
[2024-08-02] VITALS (7 sets, daily range): BP systolic 119–127; BP diastolic 74–82; O2SAT 90–96
[2024-08-02] MEDS ORDERED: TICAGRELOR 90 MG TABLET PO SCH (17:00)
[2024-08-03] VITALS (9 sets, daily range): BP systolic 98–148; BP diastolic 76–83; O2SAT 90–98
[2024-08-03 06:34] LABS: HEMATOCRIT 37.1 % (36.0-45.00); HEMOGLOBIN 11.8 g/dL (12.0-15.00); MEAN CELL VOLUME 87.9 fL (80.00-100.00); MEAN CORPUSCULAR HEMOGLOBIN 28.1 pg (27.00-32.0); MEAN CORPUSCULAR HGB CONC 31.9 g/dl (32.0-36.0); PLATELET COUNT 433 K/uL (150-450); RED BLOOD COUNT 4.22 M/uL (4.00-6.00); RED CELL DISTRIBUTION WIDTH 15.9 % (11.5-14.5)
[2024-08-03 07:46] LABS: ALBUMIN 2.4 gm/dL (3.4-5.0); BILIRUBIN TOTAL 0.48 mg/dL (0.3-1.2); CALCIUM 8.4 mg/dL (8.5-10.1); GFR 52.69; GLOBULINA 3.6 G/DL (2.4-3.5); MAGNESIUM 1.8 mg/dL (1.8-2.4); PHOSPHOROUS 2.9 mg/dL (2.5-4.9); POTASSIUM 5.29 mEq/L (3.5-5.1)
[2024-08-03] MEDS ORDERED: SODIUM POLYSTYRENE SULFONATE 30G/8 TSP PO SCH (12:11)
[2024-08-04] VITALS (10 sets, daily range): BP systolic 116–160; BP diastolic 80–86; O2SAT 90–98
[2024-08-04 08:19] LABS: HEMATOCRIT 36.1 % (36.0-45.00); HEMOGLOBIN 11.8 g/dL (12.0-15.00); MEAN CELL VOLUME 88.3 fL (80.00-100.00); MEAN CORPUSCULAR HGB CONC 32.8 g/dl (32.0-36.0); PLATELET COUNT 405 K/uL (150-450); RED BLOOD COUNT 4.09 M/uL (4.00-6.00); RED CELL DISTRIBUTION WIDTH 16.1 % (11.5-14.5)
[2024-08-04 08:48] LABS: ALBUMIN 2.3 gm/dL (3.4-5.0); BILIRUBIN TOTAL 0.5 mg/dL (0.3-1.2); CALCIUM 8.8 mg/dL (8.5-10.1); CREATININE SERUM 0.87 mg/dL (0.55-1.02); GFR 61.88; MAGNESIUM 1.8 mg/dL (1.8-2.4); PHOSPHOROUS 3.3 mg/dL (2.5-4.9); POTASSIUM 4.47 mEq/L (3.5-5.1); TOTAL PROTEIN 6.3 gm/dL (6.4-8.2)
[2024-08-04] MEDS ORDERED: EMPAGLIFLOZIN 10 MG TABLET PO SCH (09:00)
[2024-08-04] MEDS ORDERED: METOPROLOL SUCCINATE 50 MG TAB.SR.24H PO SCH ×2 (09:00)
[2024-08-04] MEDS ORDERED: LEVOTHYROXINE SODIUM 100 MCG/VIAL VIAL IV SCH ×2 (09:00→17:00)
[2024-08-04 18:05] LABS: ABG PH 7.389 (7.35-7.45); ABG pCO2 47.7 mmHg (35-45); BASE EXCESS 2.4 mmol/l; BICARBONATE 28.2 mmol/l (23-25); SaO2 87.6 %; Tco2 29.6 mmol/l
[2024-08-04 18:24] LABS: ABG PO2 54.1 mmHg (80-100)
[2024-08-04 18:25] LABS: allen test SATISFACTORY; puncture site RADIAL RIGHT
[2024-08-04 18:26] LABS: o2 21 %
[2024-08-05] VITALS (9 sets, daily range): BP systolic 110–164; BP diastolic 67–99; O2SAT 90–98
[2024-08-06] VITALS (9 sets, daily range): BP systolic 127–132; BP diastolic 70–84; O2SAT 90–96
[2024-08-07] VITALS (9 sets, daily range): BP systolic 108–148; BP diastolic 74–83; O2SAT 57–97
[2024-08-07 04:59] LABS: HEMATOCRIT 32.8 % (36.0-45.00); HEMOGLOBIN 10.7 g/dL (12.0-15.00); MEAN CORPUSCULAR HGB CONC 32.6 g/dl (32.0-36.0); PLATELET COUNT 327 K/uL (150-450); RED BLOOD COUNT 3.82 M/uL (4.00-6.00); RED CELL DISTRIBUTION WIDTH 15.7 % (11.5-14.5)
[2024-08-07 05:19] LABS: BILIRUBIN TOTAL 0.82 mg/dL (0.3-1.2); CALCIUM 8.8 mg/dL (8.5-10.1); CREATININE SERUM 0.78 mg/dL (0.55-1.02); GFR 70.19; GLOBULINA 3.9 G/DL (2.4-3.5); MAGNESIUM 1.7 mg/dL (1.8-2.4); PHOSPHOROUS 3.2 mg/dL (2.5-4.9); POTASSIUM 4.32 mEq/L (3.5-5.1); TOTAL PROTEIN 5.9 gm/dL (6.4-8.2)
[2024-08-07 13:31] LABS: ABG PH 7.443 (7.35-7.45); ABG pCO2 47.6 mmHg (35-45); BASE EXCESS 6.5 mmol/l; BICARBONATE 31.8 mmol/l (23-25); Tco2 33.3 mmol/l
[2024-08-07 13:33] LABS: ABG PO2 54.7 mmHg (80-100); allen test SATISFACTORY; o2 21 %; puncture site RADIAL LEFT
[2024-08-07] MEDS ORDERED: FUROsemide 20 MG TABLET PO SCH (17:00)
[2024-08-08] VITALS (10 sets, daily range): BP systolic 93–130; BP diastolic 55–66; O2SAT 94–99
[2024-08-08] MEDS ORDERED: CEFTRIAXONE SODIUM 2,000 MG VIAL IV SCH (09:00)
[2024-08-08] MEDS ORDERED: FUROsemide 40 MG TABLET PO SCH (17:00)
[2024-08-09] VITALS (9 sets, daily range): BP systolic 104–122; BP diastolic 66–77; O2SAT 93–100
[2024-08-10] VITALS (8 sets, daily range): BP systolic 103–116; BP diastolic 72–93; O2SAT 90–97
[2024-08-10 06:34] LABS: HEMOGLOBIN 10.7 g/dL (12.0-15.00); MEAN CELL VOLUME 88.2 fL (80.00-100.00); MEAN CORPUSCULAR HEMOGLOBIN 28.7 pg (27.00-32.0); MEAN CORPUSCULAR HGB CONC 32.5 g/dl (32.0-36.0); PLATELET COUNT 311 K/uL (150-450); RED BLOOD COUNT 3.74 M/uL (4.00-6.00); RED CELL DISTRIBUTION WIDTH 15.1 % (11.5-14.5)
[2024-08-10 07:29] LABS: BILIRUBIN TOTAL 0.55 mg/dL (0.3-1.2); CALCIUM 8.4 mg/dL (8.5-10.1); CREATININE SERUM 0.94 mg/dL (0.55-1.02); GFR 56.59; GLOBULINA 3.8 G/DL (2.4-3.5); MAGNESIUM 1.8 mg/dL (1.8-2.4); POTASSIUM 4.02 mEq/L (3.5-5.1); TOTAL PROTEIN 5.8 gm/dL (6.4-8.2)
[2024-08-10] MEDS ORDERED: METOPROLOL SUCCINATE 100 MG TAB.SR.24H PO NR (12:00)
[2024-08-10] MEDS ORDERED: FUROsemide 20 MG TABLET PO SCH (17:00)
[2024-08-10] MEDS ORDERED: METOPROLOL SUCCINATE 100 MG TAB.SR.24H PO SCH (21:00)
[2024-08-11] VITALS (7 sets, daily range): BP systolic 121–148; BP diastolic 60–90; O2SAT 90–97
[2024-08-11] MEDS ORDERED: SPIRONOLACTONE 25 MG TABLET PO SCH (09:00)
[2024-08-11] MEDS ORDERED: ENTRESTO 24 MG1 EACH PO (10:53)
[2024-08-11] MEDS ORDERED: CLOPIDOGREL BIS75 MG PO (10:53)
[2024-08-11] MEDS ORDERED: XARELTO20 MG PO (10:53)
[2024-08-11] MEDS ORDERED: TOPROL XL100 M1 PO (10:54)
[2024-08-11] MEDS ORDERED: SPIRONOLACTONE25 MG PO (10:54)
[2024-08-11] MEDS ORDERED: LIPITOR40 M1 PO (10:54)
[2024-08-11] MEDS ORDERED: PANTOPRAZOLE SO40 MG PO (10:55)
[2024-08-11] MEDS ORDERED: LEVO-T137 MCG PO (10:55)
[2024-08-11] MEDS ORDERED: JARDIANCE10 MG PO (10:55)
[2024-08-11] MEDS ORDERED: FUROSEMIDE20 MG PO (10:55)
[2024-08-11] MEDS ORDERED: PROTEINEX-18 LI30 ML PO (10:56)
[2024-08-11] MEDS ORDERED: MULTIGEN PLUS1 EACH PO (10:58)
[2024-08-11] MEDS ORDERED: RIVAROXABAN 20 MG TABLET PO SCH (17:00)
== END 2024-08-11 10:52 | disposition home or self-care (01) | DRG 280 ==
LOC: ER 11:10 → ICU-2 20:53 → ICU 07-19 02:22 → MEDI 07-22 19:18
PROVIDERS: Emergency Medicine; General Practice; Internal Medicine; Internal Medicine Infectious Disease; Radiology Vascular & Interventional Radiology; ADMIT Internal Medicine; ATTEND Internal Medicine
PROC: B246ZZZ Ultrasonography of Right and Left Heart (ICD-10-PCS; principal; 2024-07-18)
PROC: 4A12X4Z Monitoring of Cardiac Electrical Activity, External Approach (ICD-10-PCS; 2024-07-18)
PROC: B020ZZZ Computerized Tomography (CT Scan) of Brain (ICD-10-PCS; 2024-07-18)
PROC: BB24ZZZ Computerized Tomography (CT Scan) of Bilateral Lungs (ICD-10-PCS; 2024-07-18)
PROC: 3E0F7GC Introduction of Other Therapeutic Substance into Respiratory Tract, Via Natural or Artificial Opening (ICD-10-PCS; 2024-07-18)
PROC: BG44ZZZ Ultrasonography of Thyroid Gland (ICD-10-PCS; 2024-07-19)
PROC: B020ZZZ Computerized Tomography (CT Scan) of Brain (ICD-10-PCS; 2024-07-20)
PROC: B030ZZZ Magnetic Resonance Imaging (MRI) of Brain (ICD-10-PCS; 2024-07-21)
PROC: 0W9B3ZZ Drainage of Left Pleural Cavity, Percutaneous Approach (ICD-10-PCS; 2024-07-21)
PROC: BW21ZZZ Computerized Tomography (CT Scan) of Abdomen and Pelvis (ICD-10-PCS; 2024-07-23)
PROC: BB4BZZZ Ultrasonography of Pleura (ICD-10-PCS; 2024-07-26)
PROC: BB24ZZZ Computerized Tomography (CT Scan) of Bilateral Lungs (ICD-10-PCS; 2024-07-27)
PROC: 0W9B3ZZ Drainage of Left Pleural Cavity, Percutaneous Approach (ICD-10-PCS; 2024-07-28)
PROC: 5A09557 Assistance with Respiratory Ventilation, Greater than 96 Consecutive Hours, Continuous Positive Airway Pressure (ICD-10-PCS; 2024-07-28)
PROC: 0W993ZZ Drainage of Right Pleural Cavity, Percutaneous Approach (ICD-10-PCS; 2024-07-29)
PROC: BB24ZZZ Computerized Tomography (CT Scan) of Bilateral Lungs (ICD-10-PCS; 2024-08-04)
PROC: BB4BZZZ Ultrasonography of Pleura (ICD-10-PCS; 2024-08-04)
PROC: 0W9B3ZZ Drainage of Left Pleural Cavity, Percutaneous Approach (ICD-10-PCS; 2024-08-06)
PROC: BB4BZZZ Ultrasonography of Pleura (ICD-10-PCS; 2024-08-06)
DX: I50.23 Acute on chronic systolic (congestive) heart failure (principal); J96.01 Acute respiratory failure with hypoxia; I21.A1 Myocardial infarction type 2; J91.8 Pleural effusion in other conditions classified elsewhere; J98.11 Atelectasis; N39.0 Urinary tract infection, site not specified; N17.9 Acute kidney failure, unspecified; I69.351 Hemiplegia and hemiparesis following cerebral infarction affecting right dominant side; I31.39 Other pericardial effusion (noninflammatory); I48.20 Chronic atrial fibrillation, unspecified; I13.0 Hypertensive heart and chronic kidney disease with heart failure and stage 1 through stage 4 chronic kidney disease, or unspecified chronic kidney disease; I25.10 Atherosclerotic heart disease of native coronary artery without angina pectoris; I69.320 Aphasia following cerebral infarction; N18.9 Chronic kidney disease, unspecified; E04.1 Nontoxic single thyroid nodule; R59.0 Localized enlarged lymph nodes; D64.89 Other specified anemias; E03.9 Hypothyroidism, unspecified; B96.20 Unspecified Escherichia coli [E. coli] as the cause of diseases classified elsewhere; B96.1 Klebsiella pneumoniae [K. pneumoniae] as the cause of diseases classified elsewhere; Z79.01 Long term (current) use of anticoagulants
CPT/HCPCS: 70553

== ENCOUNTER 2024-08-12 17:37 | Inpatient (IN) | payer OTHER ==
[~2024-08-12] VITALS: Ht 162.6 cm; Wt 113.4 kg
[~2024-08-12 17:37] MED LIST changes: +ENTRESTO 24 MG1 EACH PO; +FUROSEMIDE20 MG PO; +JARDIANCE10 MG PO; +MULTIGEN PLUS1 EACH PO; +PANTOPRAZOLE SO40 MG PO; +PROTEINEX-18 LI30 ML PO; +TOPROL XL100 M1 PO
--- NOTE | 2024-08-12 17:44 | NUR ---
SE RECIBE PACIENTE EN AMBULANCIA PARAMEDICOS REFIEREN QUE MIENTRAS LA ESTABAN VOLTEANDO EN LA CAMA EN EL HOME LA MISMA SE SYNCOPIO, SE LE FUERON LOS OJOS PARA ATRAS Y RELAJO SPHINCHERS. AL MOMENTO DEL TRIAGE EN AMBULANCIA LA MISMA CON PULSO IRREGULAR 108-130, SPO2% 88-90 Y DISTRES RESPIRATORIO. SE REALIZA EKG Y SE PASA PACIENTE A UNIDAD DE CHEST PAIN.
--- NOTE | 2024-08-12 18:36 | NUR ---
SE RECIBE PACIENTE EN AREA DE CHEST PAIN, ALERTA MAS NO VERBALIZANDO. SE CONECTA A MONITOR CARDIACO Y OXIMETRIA DE PULSO CONTINUO. PACIENTE CON CANULA NASAL A 5LT./MIN. SE OBSERVAN EDEMAS EN EXTREMIDADES SUPERIORES. SE ABRE ACCESO VENOSO BAJO MEDIDAS ASEPTICAS. SE REALIZAN MUESTRAS BAJO MEDIDAS ASEPTICAS.
[2024-08-12] MEDS ORDERED: LevETIRAcetam 500 MG/5 ML VIAL IV STA (18:45)
[2024-08-12] MEDS ORDERED: RINGERS SOLUTION,LACTATED 1,000 ML IV STA (18:45)
[2024-08-12 19:01] LABS: HEMOGLOBIN 11.6 g/dL (12.0-15.00); MEAN CORPUSCULAR HEMOGLOBIN 28.4 pg (27.00-32.0); MEAN CORPUSCULAR HGB CONC 32.3 g/dl (32.0-36.0); PLATELET COUNT 375 K/uL (150-450); RED BLOOD COUNT 4.09 M/uL (4.00-6.00); RED CELL DISTRIBUTION WIDTH 15.4 % (11.5-14.5)
[2024-08-12 19:06] LABS: ABG PH 7.459 (7.35-7.45); ABG PO2 67.4 mmHg (80-100); ABG pCO2 49.8 mmHg (35-45); BASE EXCESS 9.1 mmol/l; BICARBONATE 34.6 mmol/l (23-25); SaO2 94.7 %; Tco2 36.1 mmol/l
[2024-08-12] MEDS ORDERED: IPRATROPIUM/ALBUTEROL SULFATE 3 ML AMPUL.NEB IH SCH (19:16)
[2024-08-12 19:17] LABS: INR 1.12; PARTIAL THROMBOPLASTIN TIME 27.9 SECONDS (22.0-34.0); PROTHROMBIN TIME 12.1 SECONDS (9.0-11.5)
[2024-08-12 19:22] LABS: ALBUMIN 2.4 gm/dL (3.4-5.0); BILIRUBIN TOTAL 0.61 mg/dL (0.3-1.2); CREATININE SERUM 0.71 mg/dL (0.55-1.02); GFR 78.24; GLOBULINA 4.9 G/DL (2.4-3.5); POTASSIUM 3.19 mEq/L (3.5-5.1); TOTAL PROTEIN 7.3 gm/dL (6.4-8.2)
[2024-08-12] MEDS ORDERED: IPRATROPIUM/ALBUTEROL SULFATE 3 ML AMPUL.NEB IH ONE (19:22)
[2024-08-12 20:21] LABS: o2 40 %
[2024-08-12 20:24] LABS: allen test SATISFACTORY; puncture site RADIAL RIGHT
[2024-08-12 21:09] LABS: PH,URINE 6.5 (5.0-8.0); URINE APPEARANCE Clear; URINE BILIRRUBIN Negative (NEGATIVE); URINE BLOOD Negative; URINE COLOR Yellow; URINE KETONE Negative (NEGATIVE); URINE LEUKOCYTE Small; URINE NITRATE Negative; URINE PROTEIN Negative (NEGATIVE); URINE UROBILINOGEN 0.2 E.U./dl
[2024-08-12 21:13] LABS: URINE BACTERIA 7180.1 uL (0.0-1933); URINE EPITHELIAL CELLS 8.4 uL (0.0-38.8); URINE RBC 5.1 uL (0.0-20.8); URINE WBC 96.7 uL (0.0-23.2)
[2024-08-12 21:16] LABS: URINE CAST 0.45 uL (0.0-1.40); URINE GLUCOSE 100 MG/DL (NEGATIVE)
[2024-08-12] MEDS ORDERED: POTASSIUM BICARBONATE/CIT AC 25 MEQ TABLET.EFF PO SCH (22:44)
[2024-08-12] MEDS ORDERED: POTASSIUM CHLORIDE 20MEQ/100ML H2O PB IV ONE (22:45)
[2024-08-12] MEDS ORDERED: METOPROLOL SUCCINATE 100 MG TAB.SR.24H PO SCH (23:03)
[2024-08-12] MEDS ORDERED: CEFTRIAXONE SODIUM 2,000 MG VIAL IV SCH (23:04)
[2024-08-13] VITALS (8 sets, daily range): BP systolic 115–139; BP diastolic 74–96; O2SAT 94–98
[2024-08-13] MEDS ORDERED: FUROsemide 40 MG/4 ML VIAL IV SCH (01:00)
[2024-08-13] MEDS ORDERED: CEFTRIAXONE SODIUM 2,000 MG VIAL ONE (01:33)
[2024-08-13 03:47] LABS: HEMATOCRIT 32.3 % (36.0-45.00); HEMOGLOBIN 10.7 g/dL (12.0-15.00); MEAN CELL VOLUME 85.8 fL (80.00-100.00); MEAN CORPUSCULAR HEMOGLOBIN 28.5 pg (27.00-32.0); MEAN CORPUSCULAR HGB CONC 33.2 g/dl (32.0-36.0); PLATELET COUNT 346 K/uL (150-450); RED BLOOD COUNT 3.77 M/uL (4.00-6.00); RED CELL DISTRIBUTION WIDTH 15.4 % (11.5-14.5)
[2024-08-13 03:58] LABS: ALBUMIN 2.2 gm/dL (3.4-5.0); BILIRUBIN TOTAL 0.4 mg/dL (0.3-1.2); CALCIUM 8.5 mg/dL (8.5-10.1); CREATININE SERUM 0.59 mg/dL (0.55-1.02); GFR 96.87; GLOBULINA 4.2 G/DL (2.4-3.5); MAGNESIUM 1.5 mg/dL (1.8-2.4); PHOSPHOROUS 2.8 mg/dL (2.5-4.9); POTASSIUM 4.08 mEq/L (3.5-5.1); TOTAL PROTEIN 6.4 gm/dL (6.4-8.2)
[2024-08-13 04:22] LABS: CHOL HDL RATIO 4.5 (0-5.0)
[2024-08-13 04:29] LABS: C-REACTIVE PROTEIN 5.81 MG/DL (0.00-0.29); TSH 13.5 uIU/mL (0.358-3.74)
[2024-08-13] MEDS ORDERED: LEVOTHYROXINE SODIUM 137 MCG TABLET PO SCH (06:00)
[2024-08-13] MEDS ORDERED: VALSARTAN PO SCH (09:00)
[2024-08-13] MEDS ORDERED: CLOPIDOGREL BISULFATE 75 MG TABLET PO SCH (09:00)
[2024-08-13] MEDS ORDERED: RIVAROXABAN 20 MG TABLET PO SCH (09:00)
[2024-08-13] MEDS ORDERED: LevETIRAcetam 500 MG/5 ML VIAL IV SCH (09:00)
[2024-08-13] MEDS ORDERED: SACUBITRIL PO SCH (09:00)
[2024-08-13] MEDS ORDERED: IPRATROPIUM/ALBUTEROL SULFATE 3 ML AMPUL.NEB IH SCH (09:00)
[2024-08-13] MEDS ORDERED: SPIRONOLACTONE 25 MG TABLET PO SCH (09:00)
[2024-08-13] MEDS ORDERED: FAMOTIDINE/PF 20 MG/2 ML VIAL IV SCH (09:00)
[2024-08-13] MEDS ORDERED: MAGNESIUM SULFATE IN WATER 4GM/50ML PIGGYBAG IV ONE (11:15)
[2024-08-13] MEDS ORDERED: MAGNESIUM SULFATE IN WATER 4 GM/100 ML PIGGYBACK IV NR (12:15)
[2024-08-13] MEDS ORDERED: PATIENTS OWN MEDICATION (MEDICAMENTO EN PISO) PO SCH (17:00)
[2024-08-13] MEDS ORDERED: AA 4.25%/CAL/LYTES/DEXT 5% 1,000 ML PERIFERAL SCH (17:00)
[2024-08-13] MEDS ORDERED: ATORVASTATIN CALCIUM 40 MG TABLET PO SCH (17:00)
[2024-08-13] MEDS ORDERED: IRON/V.C/V.B12/FOLIC A/VIT. E 1 CAPL CAPLET PO SCH (17:00)
[2024-08-14] VITALS (7 sets, daily range): BP systolic 102–149; BP diastolic 70–77; O2SAT 94–99
[2024-08-14 05:49] LABS: HEMATOCRIT 34.6 % (36.0-45.00); HEMOGLOBIN 11.3 g/dL (12.0-15.00); MEAN CELL VOLUME 88.1 fL (80.00-100.00); MEAN CORPUSCULAR HEMOGLOBIN 28.7 pg (27.00-32.0); MEAN CORPUSCULAR HGB CONC 32.6 g/dl (32.0-36.0); PLATELET COUNT 371 K/uL (150-450); RED BLOOD COUNT 3.93 M/uL (4.00-6.00); RED CELL DISTRIBUTION WIDTH 15.9 % (11.5-14.5)
[2024-08-14] MEDS ORDERED: LEVOTHYROXINE SODIUM 150 MCG TABLET PO SCH (06:00)
[2024-08-14] MEDS ORDERED: PATIENTS OWN MEDICATION (MEDICAMENTO EN PISO) PO SCH (09:00)
[2024-08-15] VITALS (9 sets, daily range): BP systolic 107–114; BP diastolic 70–84; O2SAT 94–100
[2024-08-15 08:13] LABS: ALBUMIN 2.1 gm/dL (3.4-5.0); BILIRUBIN TOTAL 0.38 mg/dL (0.3-1.2); CALCIUM 8.2 mg/dL (8.5-10.1); CREATININE SERUM 0.8 mg/dL (0.55-1.02); GFR 68.17; GLOBULINA 3.7 G/DL (2.4-3.5); MAGNESIUM 2.1 mg/dL (1.8-2.4); PHOSPHOROUS 3.4 mg/dL (2.5-4.9); POTASSIUM 4.2 mEq/L (3.5-5.1); TOTAL PROTEIN 5.8 gm/dL (6.4-8.2)
[2024-08-15 13:10] LABS: BB 0 % (0); MM 100 % (97-100); c mb 0 % (0-3); macro t 0 % (Not Observed); macro tyoe 2 0 % (Not Observed); total ck 14 U/L (26-161)
[2024-08-15] MEDS ORDERED: FUROsemide 40 MG/4 ML VIAL IV SCH ×2 (21:00)
[2024-08-16] VITALS (8 sets, daily range): BP systolic 85–123; BP diastolic 61–84; O2SAT 94–100
[2024-08-16] MEDS ORDERED: LEVOTHYROXINE SODIUM 100 MCG/VIAL VIAL IV SCH (09:00)
[2024-08-16] MEDS ORDERED: FUROsemide 20 MG/2 ML VIAL IV SCH (09:00)
[2024-08-16 18:53] LABS: ABG PH 7.496 (7.35-7.45); ABG PO2 77.6 mmHg (80-100); ABG pCO2 47.1 mmHg (35-45); BASE EXCESS 10.7 mmol/l; BICARBONATE 35.6 mmol/l (23-25); SaO2 96.8 %
[2024-08-16 18:54] LABS: allen test SATISFACTORY; o2 21 %; puncture site RADIAL RIGHT
[2024-08-17] VITALS (7 sets, daily range): BP systolic 107–111; BP diastolic 73–77; O2SAT 96–99
[2024-08-17 06:09] LABS: HEMATOCRIT 29.7 % (36.0-45.00); HEMOGLOBIN 9.6 g/dL (12.0-15.00); MEAN CELL VOLUME 88.2 fL (80.00-100.00); MEAN CORPUSCULAR HEMOGLOBIN 28.4 pg (27.00-32.0); MEAN CORPUSCULAR HGB CONC 32.3 g/dl (32.0-36.0); PLATELET COUNT 286 K/uL (150-450); RED BLOOD COUNT 3.37 M/uL (4.00-6.00); RED CELL DISTRIBUTION WIDTH 15.6 % (11.5-14.5)
[2024-08-17 06:44] LABS: BILIRUBIN TOTAL 0.4 mg/dL (0.3-1.2); CALCIUM 8.1 mg/dL (8.5-10.1); CREATININE SERUM 0.75 mg/dL (0.55-1.02); GFR 73.44; GLOBULINA 3.6 G/DL (2.4-3.5); MAGNESIUM 1.9 mg/dL (1.8-2.4); PHOSPHOROUS 2.9 mg/dL (2.5-4.9); POTASSIUM 4.06 mEq/L (3.5-5.1); TOTAL PROTEIN 5.6 gm/dL (6.4-8.2)
[2024-08-17] MEDS ORDERED: FUROsemide 20 MG/2 ML VIAL IV SCH (09:00)
[2024-08-17] MEDS ORDERED: ACETAZOLAMIDE SODIUM 500 MG VIAL IV SCH (17:00)
[2024-08-18] VITALS (8 sets, daily range): BP systolic 101–116; BP diastolic 62–70; O2SAT 90–100
[2024-08-18 06:53] LABS: HEMATOCRIT 29.9 % (36.0-45.00); HEMOGLOBIN 9.5 g/dL (12.0-15.00); MEAN CELL VOLUME 89.2 fL (80.00-100.00); MEAN CORPUSCULAR HEMOGLOBIN 28.4 pg (27.00-32.0); MEAN CORPUSCULAR HGB CONC 31.8 g/dl (32.0-36.0); PLATELET COUNT 304 K/uL (150-450); RED BLOOD COUNT 3.35 M/uL (4.00-6.00); RED CELL DISTRIBUTION WIDTH 15.7 % (11.5-14.5)
[2024-08-18 07:39] LABS: BILIRUBIN TOTAL 0.5 mg/dL (0.3-1.2); CALCIUM 8.2 mg/dL (8.5-10.1); CREATININE SERUM 0.8 mg/dL (0.55-1.02); GFR 68.17; GLOBULINA 3.6 G/DL (2.4-3.5); POTASSIUM 4.12 mEq/L (3.5-5.1); TOTAL PROTEIN 5.6 gm/dL (6.4-8.2)
[2024-08-18] MEDS ORDERED: EMPAGLIFLOZIN 10 MG TABLET PO SCH (17:00)
[2024-08-18] MEDS ORDERED: SACUBITRIL/VALSARTAN 1 EACH TABLET PO SCH (17:00)
[2024-08-19] VITALS (9 sets, daily range): BP systolic 97–106; BP diastolic 59–65; O2SAT 86–100
[2024-08-20] VITALS (8 sets, daily range): BP systolic 99–130; BP diastolic 64–77; O2SAT 86–100
[2024-08-20 06:02] LABS: HEMATOCRIT 28.1 % (36.0-45.00); HEMOGLOBIN 9.3 g/dL (12.0-15.00); MEAN CELL VOLUME 86.7 fL (80.00-100.00); MEAN CORPUSCULAR HEMOGLOBIN 28.6 pg (27.00-32.0); PLATELET COUNT 330 K/uL (150-450); RED BLOOD COUNT 3.24 M/uL (4.00-6.00); RED CELL DISTRIBUTION WIDTH 15.6 % (11.5-14.5)
[2024-08-20 06:46] LABS: ALBUMIN 1.9 gm/dL (3.4-5.0); BILIRUBIN TOTAL 0.31 mg/dL (0.3-1.2); CALCIUM 8.3 mg/dL (8.5-10.1); CREATININE SERUM 0.75 mg/dL (0.55-1.02); GFR 73.44; GLOBULINA 3.8 G/DL (2.4-3.5); PHOSPHOROUS 3.2 mg/dL (2.5-4.9); POTASSIUM 3.82 mEq/L (3.5-5.1); TOTAL PROTEIN 5.7 gm/dL (6.4-8.2)
[2024-08-20] MEDS ORDERED: AMINO ACIDS 1 EACH TABLET PO SCH (13:00)
[2024-08-21 02:25] VITALS: BP 137/76; O2SAT 97
[2024-08-21 06:00] VITALS: O2SAT 98
[2024-08-21 06:54] LABS: HEMATOCRIT 29.9 % (36.0-45.00); HEMOGLOBIN 9.7 g/dL (12.0-15.00); MEAN CELL VOLUME 86.8 fL (80.00-100.00); MEAN CORPUSCULAR HEMOGLOBIN 28.2 pg (27.00-32.0); MEAN CORPUSCULAR HGB CONC 32.5 g/dl (32.0-36.0); PLATELET COUNT 337 K/uL (150-450); RED BLOOD COUNT 3.45 M/uL (4.00-6.00); RED CELL DISTRIBUTION WIDTH 15.9 % (11.5-14.5)
[2024-08-21 08:59] VITALS: BP 115/68; O2SAT 92
[2024-08-21] MEDS ORDERED: PANTOPRAZOLE SODIUM 40 MG TABLET.DR PO SCH (09:00)
[2024-08-21] MEDS ORDERED: FUROsemide 20 MG TABLET PO SCH (09:00)
[2024-08-21 13:43] VITALS: O2SAT 99
[2024-08-21 17:43] VITALS: BP 113/71; O2SAT 98
[2024-08-21 21:48] VITALS: O2SAT 97
[2024-08-22] VITALS (9 sets, daily range): BP systolic 92–101; BP diastolic 65–69; O2SAT 94–100
[2024-08-23] VITALS (10 sets, daily range): BP systolic 100–117; BP diastolic 62–72; O2SAT 96–99
[2024-08-23 14:06] LABS: ABG PH 7.387 (7.35-7.45); ABG PO2 98.1 mmHg (80-100); ABG pCO2 50.2 mmHg (35-45); BASE EXCESS 3.4 mmol/l; BICARBONATE 29.5 mmol/l (23-25); SaO2 97.5 %; Tco2 31.1 mmol/l; allen test SATISFACTORY; o2 50 %; puncture site RADIAL LEFT
[2024-08-23 14:09] LABS: HEMATOCRIT 29.9 % (36.0-45.00); MEAN CELL VOLUME 86.4 fL (80.00-100.00); MEAN CORPUSCULAR HEMOGLOBIN 28.8 pg (27.00-32.0); MEAN CORPUSCULAR HGB CONC 33.4 g/dl (32.0-36.0); PLATELET COUNT 364 K/uL (150-450); RED BLOOD COUNT 3.46 M/uL (4.00-6.00); RED CELL DISTRIBUTION WIDTH 15.9 % (11.5-14.5)
[2024-08-23 14:21] LABS: BILIRUBIN TOTAL 0.44 mg/dL (0.3-1.2); CALCIUM 8.5 mg/dL (8.5-10.1); CREATININE SERUM 0.71 mg/dL (0.55-1.02); GFR 78.24; GLOBULINA 3.6 G/DL (2.4-3.5); POTASSIUM 3.72 mEq/L (3.5-5.1); TOTAL PROTEIN 5.6 gm/dL (6.4-8.2)
[2024-08-24] VITALS (9 sets, daily range): BP systolic 11–102; BP diastolic 62–77; O2SAT 90–99
[2024-08-24 06:11] LABS: HEMATOCRIT 29.5 % (36.0-45.00); HEMOGLOBIN 9.7 g/dL (12.0-15.00); MEAN CELL VOLUME 86.5 fL (80.00-100.00); MEAN CORPUSCULAR HEMOGLOBIN 28.4 pg (27.00-32.0); MEAN CORPUSCULAR HGB CONC 32.8 g/dl (32.0-36.0); PLATELET COUNT 337 K/uL (150-450); RED BLOOD COUNT 3.41 M/uL (4.00-6.00); RED CELL DISTRIBUTION WIDTH 15.4 % (11.5-14.5)
[2024-08-24 06:46] LABS: ALBUMIN 1.9 gm/dL (3.4-5.0); BILIRUBIN TOTAL 0.42 mg/dL (0.3-1.2); CALCIUM 8.2 mg/dL (8.5-10.1); CREATININE SERUM 0.7 mg/dL (0.55-1.02); GFR 79.53; GLOBULINA 3.7 G/DL (2.4-3.5); MAGNESIUM 1.7 mg/dL (1.8-2.4); POTASSIUM 3.74 mEq/L (3.5-5.1); TOTAL PROTEIN 5.6 gm/dL (6.4-8.2)
[2024-08-24] MEDS ORDERED: MAGNESIUM SULFATE IN WATER 500 ML IV SCH (20:00)
[2024-08-24] MEDS ORDERED: MAGNESIUM SULFATE IN WATER 2 GM/50 ML PIGGYBAG IV ONE (22:30)
[2024-08-25 00:22] VITALS: O2SAT 96
[2024-08-25 02:03] VITALS: BP 114/66; O2SAT 100
[2024-08-25 04:58] VITALS: O2SAT 97
[2024-08-25 08:05] VITALS: BP 124/68; O2SAT 98
[2024-08-25 09:54] VITALS: O2SAT 97
[2024-08-25] MEDS ORDERED: LIPITOR40 M1 PO (11:49)
[2024-08-25] MEDS ORDERED: CLOPIDOGREL BIS75 MG PO (11:49)
[2024-08-25] MEDS ORDERED: XARELTO20 MG PO (11:49)
[2024-08-25] MEDS ORDERED: TOPROL XL100 M1 PO (11:50)
[2024-08-25] MEDS ORDERED: SPIRONOLACTONE25 MG PO (11:50)
[2024-08-25] MEDS ORDERED: KEPPRA500 MG PO (11:50)
[2024-08-25] MEDS ORDERED: ENTRESTO 24 MG1 EACH PO (11:50)
[2024-08-25] MEDS ORDERED: FUROSEMIDE20 MG PO (11:51)
[2024-08-25] MEDS ORDERED: PANTOPRAZOLE SO40 MG PO (11:51)
[2024-08-25] MEDS ORDERED: JARDIANCE10 MG PO (11:51)
[2024-08-25] MEDS ORDERED: PRE PROTEIN1 EACH PO (11:51)
[2024-08-25] MEDS ORDERED: FERREX 150 FOR1 EAC1 PO (11:52)
[2024-08-25] MEDS ORDERED: LEVOTHYROXINE150 MCG PO (11:52)
[2024-08-25 14:05] VITALS: O2SAT 97
[2024-08-25] MEDS ORDERED: LevETIRAcetam 500 MG TAB. PO SCH (17:00)
== END 2024-08-25 14:43 | disposition home or self-care (01) | DRG 100 ==
LOC: ER 17:37 → MEDI 23:14
PROVIDERS: Internal Medicine; ADMIT Internal Medicine; ATTEND Internal Medicine
PROC: B020ZZZ Computerized Tomography (CT Scan) of Brain (ICD-10-PCS; principal; 2024-08-12)
PROC: B030ZZZ Magnetic Resonance Imaging (MRI) of Brain (ICD-10-PCS; 2024-08-12)
PROC: B246ZZZ Ultrasonography of Right and Left Heart (ICD-10-PCS; 2024-08-12)
PROC: 5A0945A Assistance with Respiratory Ventilation, 24-96 Consecutive Hours, High Flow/Velocity Cannula (ICD-10-PCS; 2024-08-12)
PROC: BB24ZZZ Computerized Tomography (CT Scan) of Bilateral Lungs (ICD-10-PCS; 2024-08-13)
PROC: BB4BZZZ Ultrasonography of Pleura (ICD-10-PCS; 2024-08-13)
PROC: 4A12X4Z Monitoring of Cardiac Electrical Activity, External Approach (ICD-10-PCS; 2024-08-13)
PROC: 02HV33Z Insertion of Infusion Device into Superior Vena Cava, Percutaneous Approach (ICD-10-PCS; 2024-08-13)
PROC: 3E0436Z Introduction of Nutritional Substance into Central Vein, Percutaneous Approach (ICD-10-PCS; 2024-08-13)
PROC: 0W9B3ZZ Drainage of Left Pleural Cavity, Percutaneous Approach (ICD-10-PCS; 2024-08-14)
PROC: 0W9B30Z Drainage of Left Pleural Cavity with Drainage Device, Percutaneous Approach (ICD-10-PCS; 2024-08-20)
PROC: 0JH63XZ Insertion of Tunneled Vascular Access Device into Chest Subcutaneous Tissue and Fascia, Percutaneous Approach (ICD-10-PCS; 2024-08-20)
DX: G40.89 Other seizures (principal); I50.23 Acute on chronic systolic (congestive) heart failure; N39.0 Urinary tract infection, site not specified; J90 Pleural effusion, not elsewhere classified; I31.39 Other pericardial effusion (noninflammatory); E87.4 Mixed disorder of acid-base balance; J98.11 Atelectasis; I69.351 Hemiplegia and hemiparesis following cerebral infarction affecting right dominant side; I48.20 Chronic atrial fibrillation, unspecified; N17.9 Acute kidney failure, unspecified; I13.0 Hypertensive heart and chronic kidney disease with heart failure and stage 1 through stage 4 chronic kidney disease, or unspecified chronic kidney disease; I69.320 Aphasia following cerebral infarction; E03.9 Hypothyroidism, unspecified; E87.6 Hypokalemia; E04.1 Nontoxic single thyroid nodule; E11.9 Type 2 diabetes mellitus without complications; N18.9 Chronic kidney disease, unspecified; Z74.01 Bed confinement status; Z95.818 Presence of other cardiac implants and grafts; Z91.013 Allergy to seafood
CPT/HCPCS: 70551

== ENCOUNTER 2024-09-02 17:55 | Inpatient (IN) | payer OTHER ==
[~2024-09-02] VITALS: Ht 175.3 cm; Wt 95.3 kg
[~2024-09-02 17:55] MED LIST changes: +FERREX 150 FOR1 EAC1 PO; +KEPPRA500 MG PO; +LEVOTHYROXINE150 MCG PO; +PRE PROTEIN1 EACH PO
[2024-09-02] MEDS ORDERED: 0.9 % SODIUM CHLORIDE 1,000 ML IV SCH (18:30)
[2024-09-02 18:43] LABS: HEMATOCRIT 35.7 % (36.0-45.00); HEMOGLOBIN 11.6 g/dL (12.0-15.00); MEAN CELL VOLUME 84.4 fL (80.00-100.00); MEAN CORPUSCULAR HEMOGLOBIN 27.5 pg (27.00-32.0); MEAN CORPUSCULAR HGB CONC 32.6 g/dl (32.0-36.0); PLATELET COUNT 354 K/uL (150-450); RED BLOOD COUNT 4.23 M/uL (4.00-6.00); RED CELL DISTRIBUTION WIDTH 15.8 % (11.5-14.5)
[2024-09-02 19:04] LABS: INR 1.06; PARTIAL THROMBOPLASTIN TIME 22.2 SECONDS (22.0-34.0); PROTHROMBIN TIME 11.5 SECONDS (9.0-11.5)
[2024-09-02 19:09] LABS: ALBUMIN 2.3 gm/dL (3.4-5.0); BILIRUBIN TOTAL 0.43 mg/dL (0.3-1.2); CALCIUM 8.9 mg/dL (8.5-10.1); CREATININE SERUM 0.82 mg/dL (0.55-1.02); GFR 66.26; GLOBULINA 4.3 G/DL (2.4-3.5); POTASSIUM 5.21 mEq/L (3.5-5.1); TOTAL PROTEIN 6.6 gm/dL (6.4-8.2)
[2024-09-02] MEDS ORDERED: SODIUM POLYSTYRENE SULFONATE 30G/8 TSP PO STA (20:14)
[2024-09-02] MEDS ORDERED: FUROsemide 20 MG/2 ML VIAL IV SCH (20:17)
[2024-09-02] MEDS ORDERED: METOPROLOL SUCCINATE 100 MG TAB.SR.24H PO SCH (21:00)
[2024-09-02 22:13] LABS: PH,URINE 8.5 (5.0-8.0); URINE APPEARANCE Clear; URINE BILIRRUBIN Negative (NEGATIVE); URINE BLOOD Negative; URINE COLOR Yellow; URINE GLUCOSE Negative (NEGATIVE); URINE KETONE Negative (NEGATIVE); URINE LEUKOCYTE Negative; URINE NITRATE Negative; URINE PROTEIN Negative (NEGATIVE); URINE UROBILINOGEN 0.2 E.U./dl
[2024-09-02 22:16] LABS: URINE BACTERIA 284.6 uL (0.0-1933); URINE EPITHELIAL CELLS 13.5 uL (0.0-38.8)
[2024-09-02 22:17] LABS: URINE CAST 0.15 uL (0.0-1.40); URINE RBC 1.2 uL (0.0-20.8); URINE WBC 0.9 uL (0.0-23.2)
[2024-09-02 23:20] VITALS: O2SAT 98
[2024-09-03 02:18] VITALS: BP 134/86; O2SAT 95
[2024-09-03 03:32] VITALS: O2SAT 98
[2024-09-03] MEDS ORDERED: LEVOTHYROXINE SODIUM 175 MCG TABLET PO SCH (06:00)
[2024-09-03 06:16] LABS: HEMATOCRIT 36.1 % (36.0-45.00); HEMOGLOBIN 11.8 g/dL (12.0-15.00); MEAN CELL VOLUME 85.7 fL (80.00-100.00); MEAN CORPUSCULAR HGB CONC 32.6 g/dl (32.0-36.0); PLATELET COUNT 351 K/uL (150-450); RED BLOOD COUNT 4.22 M/uL (4.00-6.00); RED CELL DISTRIBUTION WIDTH 15.1 % (11.5-14.5)
[2024-09-03 06:39] LABS: ALBUMIN 2.4 gm/dL (3.4-5.0); BILIRUBIN TOTAL 0.5 mg/dL (0.3-1.2); CREATININE SERUM 0.73 mg/dL (0.55-1.02); GFR 75.77; GLOBULINA 3.9 G/DL (2.4-3.5); MAGNESIUM 1.7 mg/dL (1.8-2.4); PHOSPHOROUS 3.7 mg/dL (2.5-4.9); POTASSIUM 4.84 mEq/L (3.5-5.1); TOTAL PROTEIN 6.3 gm/dL (6.4-8.2)
[2024-09-03 08:12] VITALS: O2SAT 98
[2024-09-03 08:28] VITALS: BP 137/90
[2024-09-03] MEDS ORDERED: RIVAROXABAN 20 MG TABLET PO SCH (09:00)
[2024-09-03] MEDS ORDERED: PANTOPRAZOLE SODIUM 40 MG TABLET.DR PO SCH (09:00)
[2024-09-03] MEDS ORDERED: SODIUM POLYSTYRENE SULFONATE 15 G/4 TSP TSP PO SCH (09:00)
[2024-09-03] MEDS ORDERED: FAMOTIDINE/PF 20 MG in 0.9 % SODIUM CHLORIDE 8 ML IV PUSH SCH (09:00)
[2024-09-03] MEDS ORDERED: MAGNESIUM SULFATE IN WATER 50 ML IV NR (13:30)
[2024-09-03] MEDS ORDERED: LEVO-T175 MCG PO (15:41)
[2024-09-03 16:19] VITALS: O2SAT 100
[2024-09-03 18:49] VITALS: BP 98/66
[2024-09-04 00:15] VITALS: O2SAT 97
[2024-09-04 03:07] VITALS: BP 98/65
[2024-09-04 03:18] VITALS: O2SAT 98
[2024-09-04 08:51] VITALS: O2SAT 98
[2024-09-04 09:20] VITALS: BP 95/65
== END 2024-09-04 10:02 | disposition home or self-care (01) | DRG 291 ==
LOC: ER 17:55 → MEDJ 21:23 → SEC-K 21:23 → MEDJ 21:34
PROVIDERS: General Practice; ADMIT Internal Medicine; ATTEND Internal Medicine
PROC: 4A12X4Z Monitoring of Cardiac Electrical Activity, External Approach (ICD-10-PCS; principal; 2024-09-02)
PROC: BW24ZZZ Computerized Tomography (CT Scan) of Chest and Abdomen (ICD-10-PCS; 2024-09-02)
PROC: B24BZZZ Ultrasonography of Heart with Aorta (ICD-10-PCS; 2024-09-02)
DX: I11.0 Hypertensive heart disease with heart failure (principal); I50.23 Acute on chronic systolic (congestive) heart failure; I31.39 Other pericardial effusion (noninflammatory); T85.618A Breakdown (mechanical) of other specified internal prosthetic devices, implants and grafts, initial encounter; I69.351 Hemiplegia and hemiparesis following cerebral infarction affecting right dominant side; J90 Pleural effusion, not elsewhere classified; N17.9 Acute kidney failure, unspecified; E03.9 Hypothyroidism, unspecified; D64.9 Anemia, unspecified; I48.91 Unspecified atrial fibrillation; R56.9 Unspecified convulsions; I25.10 Atherosclerotic heart disease of native coronary artery without angina pectoris

== ENCOUNTER 2024-09-07 08:59 | Emergency (ER) | payer OTHER ==
[~2024-09-07] VITALS: Ht 172.7 cm; Wt 95.3 kg
[~2024-09-07 08:59] MED LIST changes: +LEVO-T175 MCG PO
[2024-09-07 10:31] LABS: HEMATOCRIT 35.5 % (36.0-45.00); HEMOGLOBIN 11.6 g/dL (12.0-15.00); MEAN CELL VOLUME 84.3 fL (80.00-100.00); MEAN CORPUSCULAR HEMOGLOBIN 27.5 pg (27.00-32.0); MEAN CORPUSCULAR HGB CONC 32.7 g/dl (32.0-36.0); PLATELET COUNT 372 K/uL (150-450); RED BLOOD COUNT 4.21 M/uL (4.00-6.00); RED CELL DISTRIBUTION WIDTH 15.7 % (11.5-14.5)
[2024-09-07 10:34] LABS: ALBUMIN 2.3 gm/dL (3.4-5.0); BILIRUBIN TOTAL 0.67 mg/dL (0.3-1.2); CALCIUM 8.8 mg/dL (8.5-10.1); CREATININE SERUM 0.89 mg/dL (0.55-1.02); GFR 60.28; GLOBULINA 4.5 G/DL (2.4-3.5); POTASSIUM 4.22 mEq/L (3.5-5.1); TOTAL PROTEIN 6.8 gm/dL (6.4-8.2)
== END 2024-09-07 20:04 | disposition home or self-care (01) ==
LOC: ER 08:59
PROVIDERS: General Practice
DX: R53.81 Other malaise (principal); T81.89XA Other complications of procedures, not elsewhere classified, initial encounter; I10 Essential (primary) hypertension; Z91.013 Allergy to seafood; Z91.041 Radiographic dye allergy status; Z88.8 Allergy status to other drugs, medicaments and biological substances

== ENCOUNTER 2024-09-27 11:59 | Inpatient (IN) | payer OTHER ==
[~2024-09-27] VITALS: Ht 162.6 cm; Wt 81.6 kg
[2024-09-27] MEDS ORDERED: LEVOTHYROXINE25 MC1 PO (12:25)
[2024-09-27] MEDS ORDERED: 0.9 % SODIUM CHLORIDE 1,000 ML IV STA (12:36)
[2024-09-27 13:48] LABS: HEMATOCRIT 41.8 % (36.0-45.00); HEMOGLOBIN 13.6 g/dL (12.0-15.00); MEAN CELL VOLUME 83.6 fL (80.00-100.00); MEAN CORPUSCULAR HEMOGLOBIN 27.2 pg (27.00-32.0); MEAN CORPUSCULAR HGB CONC 32.5 g/dl (32.0-36.0); PLATELET COUNT 545 K/uL (150-450); RED CELL DISTRIBUTION WIDTH 16.3 % (11.5-14.5)
[2024-09-27 13:59] LABS: ALBUMIN 2.3 gm/dL (3.4-5.0); BILIRUBIN TOTAL 0.51 mg/dL (0.3-1.2); BILIRUBIN,CONJUGATED 0.2 mg/dL (0.0-0.2); BILIRUBIN,UNCONJUGATED 0.31 mg/dL (0.0-0.6); CALCIUM 9.8 mg/dL (8.5-10.1); CREATININE SERUM 1.27 mg/dL (0.55-1.02); GFR 39.99; POTASSIUM 5.29 mEq/L (3.5-5.1); TOTAL PROTEIN 7.3 gm/dL (6.4-8.2)
[2024-09-27 14:10] LABS: ABG PH 7.466 (7.35-7.45); ABG PO2 92.3 mmHg (80-100); BASE EXCESS -1.4 mmol/l; BICARBONATE 21.1 mmol/l (23-25); SaO2 97.6 %; allen test SATISFACTORY; o2 21 %; puncture site RADIAL LEFT
[2024-09-27 15:01] LABS: PH,URINE 6.5 (5.0-8.0); URINE APPEARANCE Turbid; URINE BILIRRUBIN Negative (NEGATIVE); URINE BLOOD Small; URINE COLOR Yellow; URINE GLUCOSE Negative (NEGATIVE); URINE KETONE Trace (NEGATIVE); URINE LEUKOCYTE Large; URINE NITRATE Positive; URINE PROTEIN 30 (NEGATIVE); URINE UROBILINOGEN 0.2 E.U./dl
[2024-09-27 15:05] LABS: URINE BACTERIA 2332.2 uL (0.0-1933); URINE CAST 4.35 uL (0.0-1.40); URINE EPITHELIAL CELLS 32.1 uL (0.0-38.8); URINE RBC 3.7 uL (0.0-20.8)
[2024-09-27 15:34] LABS: URINE WBC > 5548.3 uL (0.0-23.2)
[2024-09-27 15:36] LABS: URINE MUCUS MODERATE
[2024-09-27] MEDS ORDERED: SODIUM POLYSTYRENE SULFONATE 15 G/4 TSP TSP PO SCH (16:35)
[2024-09-27] MEDS ORDERED: CEFTRIAXONE SODIUM 2,000 MG VIAL IV SCH (16:45)
[2024-09-27] MEDS ORDERED: AZITHROMYCIN 500 MG VIAL IV SCH (16:46)
[2024-09-27] MEDS ORDERED: LevETIRAcetam 500 MG TAB. PO SCH (17:00)
[2024-09-27 19:25] VITALS: BP 120/70; O2SAT 98
[2024-09-27] MEDS ORDERED: METOPROLOL SUCCINATE 100 MG TAB.SR.24H PO SCH (21:00)
[2024-09-27 22:08] LABS: C-REACTIVE PROTEIN 13.8 MG/DL (0.00-0.29); TSH 37.8 uIU/mL (0.358-3.74)
[2024-09-28 01:41] VITALS: BP 128/82
[2024-09-28] MEDS ORDERED: LEVOTHYROXINE SODIUM 175 MCG TABLET PO SCH (06:00)
[2024-09-28 08:55] VITALS: BP 105/70; O2SAT 97
[2024-09-28] MEDS ORDERED: PANTOPRAZOLE SODIUM 40 MG/VIAL VIAL IV SCH (09:00)
[2024-09-28] MEDS ORDERED: RIVAROXABAN 15 MG TABLET PO SCH (09:00)
[2024-09-28] MEDS ORDERED: CLOPIDOGREL BISULFATE 75 MG TABLET PO SCH (09:00)
[2024-09-28] MEDS ORDERED: FUROsemide 20 MG TABLET PO SCH (09:00)
[2024-09-28] MEDS ORDERED: EMPAGLIFLOZIN 10 MG TABLET PO SCH (17:00)
[2024-09-28 19:17] VITALS: BP 100/66; O2SAT 97
[2024-09-29 01:00] VITALS: BP 140/80
[2024-09-29] MEDS ORDERED: LEVOTHYROXINE SODIUM 200 MCG TABLET PO SCH (06:00)
[2024-09-29 08:47] LABS: ALBUMIN 1.9 gm/dL (3.4-5.0); BILIRUBIN TOTAL 0.29 mg/dL (0.3-1.2); CALCIUM 8.5 mg/dL (8.5-10.1); CREATININE SERUM 0.99 mg/dL (0.55-1.02); GFR 53.31; GLOBULINA 3.5 G/DL (2.4-3.5); MAGNESIUM 1.6 mg/dL (1.8-2.4); PHOSPHOROUS 3.5 mg/dL (2.5-4.9); POTASSIUM 5.06 mEq/L (3.5-5.1); TOTAL PROTEIN 5.4 gm/dL (6.4-8.2)
[2024-09-29 08:53] LABS: T4 FREE 0.73 NG/ML (0.76-1.46)
[2024-09-29 09:55] VITALS: BP 110/73; O2SAT 96
[2024-09-29] MEDS ORDERED: MEROPENEM 500 MG in 0.9 % SODIUM CHLORIDE 100 ML IV SCH (12:00)
[2024-09-29 12:41] LABS: HEMATOCRIT 36.7 % (36.0-45.00); HEMOGLOBIN 11.7 g/dL (12.0-15.00); MEAN CELL VOLUME 83.9 fL (80.00-100.00); MEAN CORPUSCULAR HEMOGLOBIN 26.6 pg (27.00-32.0); MEAN CORPUSCULAR HGB CONC 31.8 g/dl (32.0-36.0); PLATELET COUNT 529 K/uL (150-450); RED BLOOD COUNT 4.38 M/uL (4.00-6.00); RED CELL DISTRIBUTION WIDTH 16.1 % (11.5-14.5)
[2024-09-29] MEDS ORDERED: AMINO ACIDS/PROTEIN HYDROLYS 30 ML BLIST.PACK PO SCH (13:00)
[2024-09-29 19:47] VITALS: BP 106/64; O2SAT 97
[2024-09-30 02:08] VITALS: BP 1301/60
[2024-09-30 09:08] VITALS: BP 111/75; O2SAT 97
[2024-09-30 17:28] VITALS: BP 104/68
[2024-10-01 01:50] VITALS: BP 132/79
[2024-10-01 09:13] VITALS: BP 119/80; O2SAT 99
[2024-10-01 19:50] VITALS: BP 106/72; O2SAT 99
[2024-10-02 02:11] VITALS: BP 130/70; O2SAT 96
[2024-10-02] MEDS ORDERED: PANTOPRAZOLE SODIUM 40 MG TABLET.DR PO SCH (09:00)
[2024-10-02 09:59] VITALS: BP 127/85; O2SAT 98
[2024-10-02 17:39] VITALS: BP 114/78; O2SAT 100
[2024-10-03 02:21] VITALS: BP 144/70; O2SAT 98
[2024-10-03 08:29] LABS: HEMATOCRIT 39.5 % (36.0-45.00); HEMOGLOBIN 12.8 g/dL (12.0-15.00); MEAN CELL VOLUME 82.8 fL (80.00-100.00); MEAN CORPUSCULAR HEMOGLOBIN 26.8 pg (27.00-32.0); MEAN CORPUSCULAR HGB CONC 32.4 g/dl (32.0-36.0); PLATELET COUNT 503 K/uL (150-450); RED BLOOD COUNT 4.77 M/uL (4.00-6.00); RED CELL DISTRIBUTION WIDTH 16.4 % (11.5-14.5)
[2024-10-03 08:36] VITALS: BP 115/67; O2SAT 97
[2024-10-03 09:00] LABS: CREATININE SERUM 0.78 mg/dL (0.55-1.02); GFR 70.19; MAGNESIUM 1.6 mg/dL (1.8-2.4); POTASSIUM 4.4 mEq/L (3.5-5.1)
[2024-10-03 18:00] VITALS: BP 110/73; O2SAT 98
[2024-10-04 01:29] VITALS: BP 114/62; O2SAT 96
[2024-10-04 11:18] VITALS: BP 110/73; O2SAT 100
[2024-10-04 17:48] VITALS: BP 112/71; O2SAT 100
[2024-10-05 02:02] VITALS: BP 122/76; O2SAT 98
[2024-10-05 06:59] LABS: PH,URINE 6.5 (5.0-8.0); URINE APPEARANCE Clear; URINE BILIRRUBIN Negative (NEGATIVE); URINE BLOOD Negative; URINE COLOR Yellow; URINE KETONE Trace (NEGATIVE); URINE LEUKOCYTE Small; URINE NITRATE Negative; URINE PROTEIN Trace (NEGATIVE); URINE UROBILINOGEN 0.2 E.U./dl
[2024-10-05 07:03] LABS: URINE BACTERIA 22.6 uL (0.0-1933); URINE EPITHELIAL CELLS 18.7 uL (0.0-38.8); URINE RBC 5.4 uL (0.0-20.8); URINE WBC 288.6 uL (0.0-23.2)
[2024-10-05 07:22] LABS: URINE CAST 1.22 uL (0.0-1.40); URINE GLUCOSE 500 MG/DL (NEGATIVE); URINE YEAST MODERATE /hpf
[2024-10-05 08:31] VITALS: BP 132/81
[2024-10-05 18:58] VITALS: BP 140/70
[2024-10-06 00:21] VITALS: BP 125/79; O2SAT 99
[2024-10-06 06:34] LABS: HEMATOCRIT 35.4 % (36.0-45.00); HEMOGLOBIN 11.6 g/dL (12.0-15.00); MEAN CELL VOLUME 81.9 fL (80.00-100.00); MEAN CORPUSCULAR HEMOGLOBIN 26.8 pg (27.00-32.0); MEAN CORPUSCULAR HGB CONC 32.7 g/dl (32.0-36.0); PLATELET COUNT 342 K/uL (150-450); RED BLOOD COUNT 4.32 M/uL (4.00-6.00); RED CELL DISTRIBUTION WIDTH 16.8 % (11.5-14.5)
[2024-10-06 07:14] LABS: ALBUMIN 2.2 gm/dL (3.4-5.0); BILIRUBIN TOTAL 0.42 mg/dL (0.3-1.2); CALCIUM 9.2 mg/dL (8.5-10.1); CREATININE SERUM 0.72 mg/dL (0.55-1.02); GFR 76.98; GLOBULINA 3.9 G/DL (2.4-3.5); MAGNESIUM 1.6 mg/dL (1.8-2.4); PHOSPHOROUS 3.2 mg/dL (2.5-4.9); POTASSIUM 4.43 mEq/L (3.5-5.1); TOTAL PROTEIN 6.1 gm/dL (6.4-8.2)
[2024-10-06 07:59] VITALS: BP 136/75
[2024-10-06] MEDS ORDERED: SPIRONOLACTONE 25 MG TABLET PO SCH (09:00)
[2024-10-06] MEDS ORDERED: MAGNESIUM SULFATE IN WATER 50 ML IV NR (12:00)
[2024-10-06 18:13] VITALS: BP 105/60
[2024-10-07 00:17] VITALS: BP 115/75; O2SAT 98
[2024-10-07 00:18] VITALS: BP 115/75; O2SAT 99
[2024-10-07 09:17] VITALS: BP 108/71; O2SAT 95
[2024-10-07 18:29] VITALS: BP 120/70
[2024-10-08 01:59] VITALS: BP 116/80; O2SAT 99
[2024-10-08 06:17] LABS: HEMATOCRIT 36.3 % (36.0-45.00); MEAN CELL VOLUME 81.9 fL (80.00-100.00); MEAN CORPUSCULAR HEMOGLOBIN 27.1 pg (27.00-32.0); MEAN CORPUSCULAR HGB CONC 33.1 g/dl (32.0-36.0); PLATELET COUNT 292 K/uL (150-450); RED BLOOD COUNT 4.43 M/uL (4.00-6.00)
[2024-10-08 07:02] LABS: ALBUMIN 2.3 gm/dL (3.4-5.0); BILIRUBIN TOTAL 0.56 mg/dL (0.3-1.2); CALCIUM 8.8 mg/dL (8.5-10.1); CREATININE SERUM 0.55 mg/dL (0.55-1.02); GFR 105.05; GLOBULINA 3.6 G/DL (2.4-3.5); MAGNESIUM 1.9 mg/dL (1.8-2.4); PHOSPHOROUS 3.1 mg/dL (2.5-4.9); POTASSIUM 4.23 mEq/L (3.5-5.1); TOTAL PROTEIN 5.9 gm/dL (6.4-8.2)
[2024-10-08] MEDS ORDERED: SPIRONOLACTONE 25 MG TABLET PO SCH (09:00)
[2024-10-08] MEDS ORDERED: FUROsemide 20 MG TABLET PO SCH (09:00)
[2024-10-08 09:09] VITALS: BP 126/84; O2SAT 100
[2024-10-08 09:56] LABS: ABG PH 7.434 (7.35-7.45); ABG PO2 82.9 mmHg (80-100); ABG pCO2 41.5 mmHg (35-45); SaO2 96.6 %
[2024-10-08 09:57] LABS: BASE EXCESS 2.7 mmol/l; BICARBONATE 27.2 mmol/l (23-25); Tco2 28.5 mmol/l
[2024-10-08 09:58] LABS: allen test SATISFACTORY; o2 21 %; puncture site RADIAL RIGHT
[2024-10-08] MEDS ORDERED: TOPROL XL100 M1 PO (12:39)
[2024-10-08] MEDS ORDERED: CLOPIDOGREL BIS75 MG PO (12:39)
[2024-10-08] MEDS ORDERED: XARELTO20 MG PO (12:39)
[2024-10-08] MEDS ORDERED: SPIRONOLACTONE25 MG PO (12:40)
[2024-10-08] MEDS ORDERED: KEPPRA500 MG PO (12:40)
[2024-10-08] MEDS ORDERED: FUROSEMIDE20 MG PO (12:40)
[2024-10-08] MEDS ORDERED: JARDIANCE10 MG PO (12:41)
[2024-10-08] MEDS ORDERED: LEVOTHYROXINE200 MCG PO (12:41)
[2024-10-08] MEDS ORDERED: PROTEINEX-18 LI30 ML PO (12:41)
[2024-10-09] MEDS ORDERED: RIVAROXABAN 20 MG TABLET PO SCH (09:00)
== END 2024-10-08 20:07 | disposition home or self-care (01) | DRG 291 ==
LOC: ER 11:59 → MEDJ 17:24 → SEC-K 17:24 → MEDJ 18:42
PROVIDERS: General Practice; Internal Medicine; ADMIT Internal Medicine; ATTEND Internal Medicine
PROC: BB24ZZZ Computerized Tomography (CT Scan) of Bilateral Lungs (ICD-10-PCS; principal; 2024-09-27)
PROC: BH4BZZZ Ultrasonography of Chest Wall (ICD-10-PCS; 2024-09-29)
DX: I11.0 Hypertensive heart disease with heart failure (principal); I50.23 Acute on chronic systolic (congestive) heart failure; J18.9 Pneumonia, unspecified organism; J90 Pleural effusion, not elsewhere classified; N39.0 Urinary tract infection, site not specified; N17.9 Acute kidney failure, unspecified; I48.91 Unspecified atrial fibrillation; B96.29 Other Escherichia coli [E. coli] as the cause of diseases classified elsewhere; E03.8 Other specified hypothyroidism; E87.5 Hyperkalemia; D72.828 Other elevated white blood cell count; E04.1 Nontoxic single thyroid nodule; Z74.01 Bed confinement status